=== PATIENT | female | born 1935 | race Caucasian/White ===

== ENCOUNTER 2017-08-10 04:08 | Inpatient (IN) | payer MEDICARE, MEDICAID ==
[2017-08-10 04:11] VITALS: BP 218/107; PULSE 98; RESP 18; TEMP 98.3; O2SAT 94
[2017-08-10] MEDS ORDERED: LEVO100T5 PO (04:27)
[2017-08-10] MEDS ORDERED: METF500T PO (04:27)
[2017-08-10] MEDS ORDERED: TOLT1CAP PO (04:27)
[2017-08-10] MEDS ORDERED: SIMV20TA PO (04:27)
[2017-08-10] MEDS ORDERED: GLIM4TAB PO (04:27)
[2017-08-10] MEDS ORDERED: SODIUM CHLOR 0.9% 1000 ML INJ 1,000 ML IV SCH (04:30)
[2017-08-10] MEDS ORDERED: MORPHINE SULFATE 4 MG/ML INJ IV PUSH ONE (04:30)
[2017-08-10] MEDS ORDERED: ONDANSETRON HCL 4 MG/2 ML VIAL IV PUSH ONE (04:30)
--- NOTE | 2017-08-10 04:35 | PD ---
HPI Chief Complaint: Fall Time Seen by Provider: 04:22 Travel History International Travel<30 days: No Contact w/Intl Traveler<30days: No Traveled to known affect area: No History of Present Illness HPI The patient is an 81 year old female who presents to the [facility] emergency department with a history of tripping and falling after getting up out of bed to go to the bathroom and the night prior to arrival. The patient reports that she ran into the vacuum and lost her balance falling to the ground. The patient reports having severe left hip pain. The patient was noted prior to arrival by ambulance services to have shortening and external rotation of the left lower extremity. She denies having any other pain. The patient denies having a headache or loss of consciousness. She denies having any neck pain, weakness of her extremities, however she does report having tingling and her left toes. She reports that she is able to move her left foot. Otherwise on review of systems, the patient denies having any chest pain , chest pressure, or shortness of breath. The patient denies having any abdominal pain, vomiting, diarrhea, urinary symptoms, or other neurologic symptoms. [facility] Past Medical History Narrative Medical The patient's past medical history is significant for hypertension, hypothyroid disorder, diabetes mellitus High Cholesterol: Yes Diabetes: Yes Patient Takes Glucophage: Yes (METFORMIN 08/09/17) Diminished Hearing: No Genitourinary: Yes (INCONTINENCE) Hypertension: Yes Thyroid Disease: Yes (HYPO) Tetanus Vaccination: Unknown Influenza Vaccination: No Past Surgical History Narrative Surgical The patient's past surgical history is significant for having a hysterectomy, having part of her small bowel resected last year. Abdominal Surgery: Yes (COLON RESECTION) Hysterectomy: Yes Social History Alcohol Use: No Tobacco Use: No Substance Use: No Allergies-Medications (Allergen,Severity, Reaction): Coded Allergies: No Known Allergies (Unverified , 08/10/17) Reported Meds & Prescriptions Reported Meds & Active Scripts Active Reported Simvastatin 20 Mg Tab 20 Mg PO DAILY Glimepiride 4 Mg Tab 4 Mg PO DAILY Take with breakfast or first main meal Levothyroxine (Levothyroxine Sodium) 100 Mcg Tab 100 Mcg PO DAILY Metformin (Metformin HCl) 500 Mg Tab 500 Mg PO DAILY With a meal Tolterodine ER (Tolterodine Tartrate) 4 Mg Cap 4 Mg PO DAILY Review of Systems Except as stated in HPI: all other systems reviewed are Neg General / Constitutional: No: Fever Eyes: No: Visual changes HENT: No: Headaches Cardiovascular: No: Chest Pain or Discomfort Respiratory: No: Shortness of Breath Gastrointestinal: No: Abdominal Pain Genitourinary: No: Dysuria Musculoskeletal: Positive: Myalgias, Arthralgias, Pain Skin: No Rash Neurologic: No: Weakness, Focal Abnormalities, Change in Mentation, Slurred Speech, Sensory Disturbance Psychiatric: No: Depression Endocrine: No: Polydipsia Hematologic/Lymphatic: No: Easy Bruising Physical Exam Narrative General: The patient is a well-developed well-nourished female in no acute distress. Head and Neck exam: Head is normocephalic atraumatic. Eyes: EOMI, pupils are equal round and reactive to light. Nose: Midline septum with pink mucous membranes Mouth: Dentition unremarkable. Moist mucus membranes. Posterior oropharynx is not erythematous. No tonsillar hypertrophy. Uvula midline. Airway patent. Neck: No palpable lymphadenopathy. No nuchal rigidity. No thyromegaly. Cardiovascular: Regular rate and rhythm without murmurs, gallops, or rubs. Lungs: Clear to auscultation bilaterally. No wheezes, rhonchi, or rales. Abdomen: Soft, without tenderness to palpation in all 4 quadrants of the abdomen. No guarding, rebound, or rigidity. Normal bowel sounds are audible. No tenderness on palpation of McBurney's point. Extremities: No clubbing, cyanosis, or edema. 2+ pulses in all 4 extremities. The patient is noted to have shortening and external rotation of the left lower extremity. The patient has pain with any attempts at movement of the left hip. The patient has no pain on palpation, ankle pain, or foot pain on palpation. There is no other deformity noted. The patient is able to wiggle her toes on the left foot. The patient has less than 3 second capillary refill. The patient reports having tingling sensations in the left toes. Back: No spinous process tenderness to palpation. No costovertebral angle tenderness to palpation. Neurologic Exam: Grossly nonfocal. The patient is oriented to person, place, time, and situation. Skin Exam: No rash noted. Intact skin that is warm and dry. Data Data Last Documented VS Vital Signs Date Time Temp Pulse Resp B/P (MAP) Pulse Ox O2 Delivery O2 Flow Rate FiO2 08/10/17 04:47 18 99 Room Air 08/10/17 04:11 98.3 98 218/107 (144) Orders Orders Electrocardiogram (08/10/17 04:22) Complete Blood Count With Diff (08/10/17 04:22) Comprehensive Metabolic Panel (08/10/17 04:22) Prothrombin Time / Inr (Pt) (08/10/17 04:22) Act Partial Throm Time (Ptt) (08/10/17 04:22) Urinalysis - C+S If Indicated (08/10/17 04:22) Chest, Single Ap (08/10/17 04:22) Iv Access Insert/Monitor (08/10/17 04:22) Ecg Monitoring (08/10/17 04:22) Oximetry (08/10/17 04:22) Urinary Catheter Insert/Apply (08/10/17 04:22) Morphine Inj (Morphine Inj) (08/10/17 04:30) Ondansetron Inj (Zofran Inj) (08/10/17 04:30) Sodium Chlor 0.9% 1000 Ml Inj (Ns 1000 M (08/10/17 04:30) Hip, Uni(Ap&Lat) W Ap Pelvis (08/10/17 04:51) Admit To Inpatient (08/10/17 ) Vital Signs (Adult) Q4H (08/10/17 05:39) Activity Bed Rest (08/10/17 05:39) Eeg Technologist / Telemetry .CONTINUOUS (08/10/17 05:39) Diet Npo (08/10/17 Breakfast) Sodium Chloride 0.9% Flush (Ns Flush) (08/10/17 05:45) Sodium Chloride 0.9% Flush (Ns Flush) (08/10/17 09:00) Basic Metabolic Panel (Bmp) (08/11/17 06:00) Complete Blood Count With Diff (08/11/17 06:00) Case Management Consult (08/10/17 05:39) Naloxone Inj (Narcan Inj) (08/10/17 05:45) Inpatient Certification (08/10/17 ) Morphine Inj (Morphine Inj) (08/10/17 05:45) Consult Orthopedic (08/10/17 ) Admit Order (Ed Use Only) (08/10/17 05:46) Labs Laboratory Tests Test 08/10/17 04:30 White Blood Count 9.3 TH/MM3 Red Blood Count 4.55 MIL/MM3 Hemoglobin 13.7 GM/DL Hematocrit 41.1 % Mean Corpuscular Volume 90.3 FL Mean Corpuscular Hemoglobin 30.0 PG Mean Corpuscular Hemoglobin Concent 33.2 % Red Cell Distribution Width 15.5 % Platelet Count 224 TH/MM3 Mean Platelet Volume 7.9 FL Neutrophils (%) (Auto) 68.4 % Lymphocytes (%) (Auto) 24.6 % Monocytes (%) (Auto) 4.6 % Eosinophils (%) (Auto) 1.8 % Basophils (%) (Auto) 0.6 % Neutrophils # (Auto) 6.4 TH/MM3 Lymphocytes # (Auto) 2.3 TH/MM3 Monocytes # (Auto) 0.4 TH/MM3 Eosinophils # (Auto) 0.2 TH/MM3 Basophils # (Auto) 0.1 TH/MM3 CBC Comment DIFF FINAL Differential Comment Prothrombin Time 10.5 SEC Prothromb Time International Ratio 1.0 RATIO Activated Partial Thromboplast Time 24.5 SEC Blood Urea Nitrogen 16 MG/DL Creatinine 0.99 MG/DL Random Glucose 192 MG/DL Total Protein 7.0 GM/DL Albumin 3.3 GM/DL Calcium Level 8.5 MG/DL Alkaline Phosphatase 67 U/L Aspartate Amino Transf (AST/SGOT) 16 U/L Alanine Aminotransferase (ALT/SGPT) 19 U/L Total Bilirubin 0.4 MG/DL Sodium Level 143 MEQ/L Potassium Level 3.9 MEQ/L Chloride Level 109 MEQ/L Carbon Dioxide Level 26.9 MEQ/L Anion Gap 7 MEQ/L Estimat Glomerular Filtration Rate 54 ML/MIN MDM Medical Decision Making Medical Screen Exam Complete: Yes Emergency Medical Condition: Yes Medical Record Reviewed: Yes Interpretation(s) Last Impressions Hip and Pelvis X-Ray 08/10/17 3903 Signed Impressions: Service Date/Time: Thursday, August 10, 2017 05:02 - CONCLUSION: 1. Intertrochanteric fracture left proximal femur. 2. Small sclerotic focus right iliac bone, nonspecific. Camron Villareal MD Chest X-Ray 08/10/17 9934 Signed Impressions: Service Date/Time: Thursday, August 10, 2017 05:06 - CONCLUSION: 1. 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 Contrasted CT chest recommended. 2. Subcentimeter nodule right lower lobe. 3. Minimal retrocardiac density. Camron Villareal MD Differential Diagnosis Left hip fracture, versus dislocation, versus femur fracture Narrative Course During the course of the patients emergency department visit, the patients history, examination, and differential diagnosis were reviewed with the patient. The patient was placed on a quality assurance monitor with oximetry and frequent blood pressure monitoring. The patient had IV access obtained and blood work sent for analysis. The patient was on a quality assurance monitor with oximetry and blood pressure monitoring. An ECG was done on arrival. The patient's ECG reveals a sinus rhythm heart rate of 99, no acute ST segment elevation, T waves are inverted in V1. An x-ray of the chest, left hip, pelvis was ordered. The patient was initially provided morphine for pain, Zofran for nausea. The patient was started on maintenance normal saline IV fluids. The patients laboratory studies were reviewed and remarkable for a CBC that is within normal limits, CMP is remarkable for chloride of 109, glucose 192, PT PTT within normal limits. Radiology studies were reviewed and remarkable for an intertrochanteric fracture on the left. The patient has a chest x-ray that shows a 7.3 cm left upper lobe mass that is likely a primary bronchogenic carcinoma, a contrasted CT of the chest is recommended. Subcentimeter nodule right lower lobe. Minimal retrocardiac density. The patients results were discussed with the patient, including the plan of care. I explained that further testing and/ or monitoring is indicated based on the patients history, examination, and/ or laboratory findings. Therefore, I recommended admission for additional evaluation. The patient expressed understanding and was agreeable with this plan. The patient was admitted to the hospital in stable condition and sent to a bed under the care of the [facility] service. Physician Communication Physician Communication The patient's case was discussed with Dr. Nathan who did agree to admit the patient for further evaluation and treatment at this time Diagnosis Primary Impression: Fall Qualified Codes: W19.XXXA - Unspecified fall, initial encounter Additional Impressions: Fracture, intertrochanteric, left femur Qualified Codes: S72.142A - Displaced intertrochanteric fracture of left femur , initial encounter for closed fracture Lung mass Admitting Information Admitting Physician Requests: Admit Ruby Snyder MD Aug 10, 2017 04:35
[2017-08-10 04:45] LABS: AUTOMATED NEUTROPHIL # 6.4 TH/MM3 (1.8-7.7); BASOPHIL # 0.1 TH/MM3 (0-0.2); BASOPHIL % 0.6 % (0.0-2.0); EOSINOPHIL # 0.2 TH/MM3 (0-0.4); EOSINOPHIL % 1.8 % (0.0-4.0); HEMATOCRIT 41.1 % (35.0-46.0); HEMO FLAGS DIFF FINAL; LYMPH % 24.6 % (9.0-44.0); LYMPHOCYTE # 2.3 TH/MM3 (1.0-4.8); MEAN CELL VOLUME 90.3 FL (80.0-100.0); MEAN CORPUSCULAR HGB CONC 33.2 % (32.0-36.0); MONO % 4.6 % (0.0-8.0); NEUT % 68.4 % (16.0-70.0); PLATELET COUNT 224 TH/MM3 (150-450); RED BLOOD COUNT 4.55 MIL/MM3 (4.00-5.30); RED CELL DISTRIBUTION WIDTH 15.5 % (11.6-17.2); WHITE BLOOD COUNT 9.3 TH/MM3 (4.0-11.0)
[2017-08-10 04:47] VITALS: RESP 18; O2SAT 99
[2017-08-10 05:00] LABS: APTT (PATIENT) 24.5 SEC (24.3-30.1); PROTHROMBIN TIME - PATIENT 10.5 SEC (9.8-11.6)
[2017-08-10 05:10] LABS: ALKALINE PHOSPHATASE 67 U/L (45-117); TOTAL BILIRUBIN ADULT 0.4 MG/DL (0.2-1.0)
[2017-08-10 05:11] LABS: ALT (GPT) 19 U/L (10-53); ANION GAP 7 MEQ/L (5-15); AST (GOT) 16 U/L (15-37); BICARBONATE 26.9 MEQ/L (21.0-32.0); BLOOD UREA NITROGEN 16 MG/DL (7-18); CHLORIDE 109 MEQ/L (98-107); GLOMERULAR FILTRATION RATE 54 ML/MIN (>89); POTASSIUM 3.9 MEQ/L (3.5-5.1); SODIUM (NA) 143 MEQ/L (136-145)
--- NOTE | 2017-08-10 05:28 | RADRPT ---
EXAM DATE/TIME: 08/10/2017 05:02 [facility] COMPARISON: No previous studies available for comparison. INDICATIONS : Fall hip pain on left side. MEDICAL HISTORY : None. SURGICAL HISTORY : None. ENCOUNTER: Initial ACUITY: 1 day PAIN SCORE: 0/10 LOCATION: Left hip FINDINGS: Examination of the left hip was performed with AP Pelvis. Slightly comminuted intertrochanteric fract ure left hip. Femoral neck is intact. Mild degenerative changes of the chest. Small sclerotic focus r ight iliac bone. The acetabulum is grossly intact. CONCLUSION: 1. Intertrochanteric fracture left proximal femur. 2. Small sclerotic focus right iliac bone, nonspecific. Camron Villareal MD on August 10, 2017 at 5:24 Board Certified Radiologist. This report was verified electronically.
[2017-08-10] MEDS ORDERED: SODIUM CHLORIDE 0.9% FLUSH 10 ML FLUSH IV FLUSH PRN (05:45)
[2017-08-10] MEDS ORDERED: NALOXONE HCL 0.4 MG/ML AMP IV PUSH PRN (05:45)
[2017-08-10] MEDS ORDERED: MORPHINE SULFATE 2 MG/ML INJ IV PUSH PRN (05:45)
[2017-08-10 06:00] VITALS: BP 177/82; PULSE 82; RESP 17; O2SAT 93
--- NOTE | 2017-08-10 06:16 | HHI.HP ---
[facility] No Primary Care Physician Admission Diagnosis left hip intertrochanteric fracture Diagnoses: Travel History International Travel<30 Days: No Contact w/Intl Traveler <30 Da: No Traveled to Known Affected Are: No History of Present Illness hx from patient, ER physician communication, and review of her records. Patient's granddaughter was at the bedside. 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 Patient reported that she was coming from bathroom to the bedroom and at the entrance, she lost balance. She tried to hold onto the vacuum housecleaner floor which was around her heart lost balance with it and fell together with the vacuum housecleaner floor onto her left side. She denies any premonitory symptoms prior to the fall such as chest pain/ palpitations/dizziness/focal weakness. She denies any diaphoresis/nausea/vomiting. Reports her last fall was about 6 months ago. Denies being on blood thinners. Denies hitting her head. Patient states that she has been taking some cough medicine lately because of her cough. No fever. However denies any history of COPD. She reports of some occasional wheezing but never needed nebulizers or inhalers. Examination apart from the above, patient denies any recent fevers/nausea/vomiting/diarrhea/urinary burning or pain on urination. Denies any hematemesis/hematochezia/melena/hematuria. Patient has been in [facility] for about 1-1/2 years now from [place]. She is here to help her granddaughter out with her toddler son Review of Systems Except as stated in HPI: all other systems reviewed are Neg Past Family Social History Past Medical History htn dm has chronic cough and wheezing at times, but no nebs or inhalors used hyperlipidemia Past Surgical History hysterectomy at 34 yo partial small bowel resection- for blockage- no cancer Reported Medications meds list on emr reviewed- pt's radha has list/ bottles of meds Allergies: Coded Allergies: No Known Allergies (Unverified , 08/10/17) Family History mom from cancer son is diabetic and diseased Social History Used to smoke cigarettes, quit about 1-1/2 years ago. Denies any alcohol abuse or drug abuse. Lives with granddaughter and her family to help them out. moved here from [place] about 1-1/2 years ago. Physical Exam Vital Signs Vital Signs Date Time Temp Pulse Resp B/P (MAP) Pulse Ox O2 Delivery O2 Flow Rate FiO2 08/10/17 06:00 82 17 177/82 (113) 93 Nasal Cannula 2.00 08/10/17 04:47 18 99 Room Air 08/10/17 04:11 98.3 98 18 218/107 (144) 94 Physical Exam GENERAL: This is a well-nourished, well-developed patient, in no apparent distress. SKIN: No rashes, ecchymoses or lesions. Cool and dry. HEAD: Atraumatic. Normocephalic. No temporal or scalp tenderness. EYES: No scleral icterus. No injection or drainage. ENT: Nose without bleeding, purulent drainage or septal hematoma. Airway patent. NECK: Trachea midline. No JVD CARDIOVASCULAR: Regular rate and rhythm without murmurs, gallops, or rubs. RESPIRATORY: Clear to auscultation. Breath sounds equal bilaterally. No wheezes , rales, or rhonchi. GASTROINTESTINAL: Abdomen soft, non-tender, nondistended. No guarding. MUSCULOSKELETAL: Extremities without clubbing, cyanosis, or edema. . No calf tenderness. Left lower extremity internally rotated and shorter than the right NEUROLOGICAL: Awake and alert. Normal speech Laboratory Laboratory Tests Test 08/10/17 04:30 White Blood Count 9.3 Red Blood Count 4.55 Hemoglobin 13.7 Hematocrit 41.1 Mean Corpuscular Volume 90.3 Mean Corpuscular Hemoglobin 30.0 Mean Corpuscular Hemoglobin Concent 33.2 Red Cell Distribution Width 15.5 Platelet Count 224 Mean Platelet Volume 7.9 Neutrophils (%) (Auto) 68.4 Lymphocytes (%) (Auto) 24.6 Monocytes (%) (Auto) 4.6 Eosinophils (%) (Auto) 1.8 Basophils (%) (Auto) 0.6 Neutrophils # (Auto) 6.4 Lymphocytes # (Auto) 2.3 Monocytes # (Auto) 0.4 Eosinophils # (Auto) 0.2 Basophils # (Auto) 0.1 CBC Comment DIFF FINAL Differential Comment Prothrombin Time 10.5 Prothromb Time International Ratio 1.0 Activated Partial Thromboplast Time 24.5 Blood Urea Nitrogen 16 Creatinine 0.99 Random Glucose 192 Total Protein 7.0 Albumin 3.3 Calcium Level 8.5 Alkaline Phosphatase 67 Aspartate Amino Transf (AST/SGOT) 16 Alanine Aminotransferase (ALT/SGPT) 19 Total Bilirubin 0.4 Sodium Level 143 Potassium Level 3.9 Chloride Level 109 Carbon Dioxide Level 26.9 Anion Gap 7 Estimat Glomerular Filtration Rate 54 Result Diagram: 08/10/1742908/10/17429 Imaging Last 48 hours Impressions Hip and Pelvis X-Ray 08/10/17450 Signed Impressions: Service Date/Time: Thursday, August 10, 2017 05:02 - CONCLUSION: 1. Intertrochanteric fracture left proximal femur. 2. Small sclerotic focus right iliac bone, nonspecific. MD Ajit Patiño VTE Risk Assessment Ajit VTE Risk Assessment: Mod/High Risk (score >= 2) Caprini Risk Assessment Model Point Value = 1 Point Value = 2 Point Value = 3 Point Value = 5 Age 41-60 Minor surgery BMI > 25 kg/m2 Swollen legs Varicose veins or History of unexplained or recurrent spontaneous Oral contraceptives or hormone replacement Sepsis (< 1 month) Serious lung disease, including pneumonia (< 1 month) Abnormal pulmonary function Acute myocardial infarction Congestive heart failure (< 1 month) History of inflammatory bowel disease Medical patient at bed rest Age 61-74 Arthroscopic surgery Major open surgery (> 45 min) Laparoscopic surgery (> 45 min) Malignancy Confined to bed (> 72 hours) Immobilizing plaster cast Central venous access Age >= 75 History of VTE Family history of VTE Factor V Leiden Prothrombin [id number] Lupus anticoagulant Anticardiolipin antibodies Elevated serum homocysteine Heparin-induced thrombocytopenia Other congenital or acquired thrombophilia Stroke (< 1 month) Elective arthroplasty Hip, pelvis, or leg fracture Acute spinal cord injury (< 1 month) Prophylaxis Regimen Total Risk Factor Score Risk Level Prophylaxis Regimen 0-1 Low Early ambulation 2 Moderate Order ONE of the following: *Sequential Compression Device (SCD) *Heparin 5000 units SQ BID 3-4 Higher Order ONE of the following medications: *Heparin 5000 units SQ TID *Enoxaparin/Lovenox 40 mg SQ daily (WT < 150 kg, CrCl > 30 mL/min) *Enoxaparin/Lovenox 30 mg SQ daily (WT < 150 kg, CrCl > 10-29 mL/min) *Enoxaparin/Lovenox 30 mg SQ BID (WT < 150 kg, CrCl > 30 mL/min) AND/OR *Sequential Compression Device (SCD) 5 or more Highest Order ONE of the following medications: *Heparin 5000 units SQ TID (Preferred with Epidurals) *Enoxaparin/Lovenox 40 mg SQ daily (WT < 150 kg, CrCl > 30 mL/min) *Enoxaparin/Lovenox 30 mg SQ daily (WT < 150 kg, CrCl > 10-29 mL/min) *Enoxaparin/Lovenox 30 mg SQ BID (WT < 150 kg, CrCl > 30 mL/min) AND *Sequential Compression Device (SCD) Assessment and Plan Assessment and Plan Impression: Status post fall Left intertrochanteric proximal femur fracture Hypertension Diabetes Hyperlipidemia Plan: Nothing by mouth. IV hydration with D5 half-normal saline at 42 cc per hour. Monitor fingersticks. Pain control. Resume home medications apart from oral hypoglycemics. Orthopedics was consulted. DVT prophylaxis with SCD. GI prophylaxis on pantoprazole. Discussed Condition With patient, her granddaughter, ER Physician Certification 2 Midnight Certification Type: Admission for Inpatient Services Order for Inpatient Services The services are ordered in accordance with Medicare regulations or non- Medicare payer requirements, as applicable. In the case of services not specified as inpatient-only, they are appropriately provided as inpatient services in accordance with the 2-midnight benchmark. Estimated LOS (days): 3 days is the estimated time the patient will need to remain in the hospital, assuming treatment plan goals are met and no additional complications. Post-Hospital Plan: Not yet determined Mario Nathan MD Aug 10, 2017 06:16
--- NOTE | 2017-08-10 06:31 | RADRPT ---
EXAM DATE/TIME: 08/10/2017 05:06 [facility] COMPARISON: No previous studies available for comparison. INDICATIONS : Fall, chest pain. MEDICAL HISTORY : None. SURGICAL HISTORY : None. ENCOUNTER: Initial ACUITY: 1 day PAIN SCORE: 0/10 LOCATION: Bilateral chest FINDINGS: A single view of the chest demonstrates mass in the left upper lobe/perihilar region measuring 7.3 x 5.9 cm. Nodule in the right lower lobe measures 7-8 mm. Heart enlarged. No consolidation. Minimal ret rocardiac density. Osseous structures are intact. CONCLUSION: 1. 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 Contrasted CT chest recommended. 2. Subcentimeter nodule right lower lobe. 3. Minimal retrocardiac density. Camron Villareal MD on August 10, 2017 at 6:28 Board Certified Radiologist. This report was verified electronically.
[2017-08-10] MEDS ORDERED: ACETAMINOPHEN/HYDROcodone 325 MG/5 MG TAB PO PRN (07:00)
[2017-08-10] MEDS ORDERED: GLUCAGON 1 MG/ML VIAL OTHER PRN (07:00)
[2017-08-10] MEDS ORDERED: LACTULOSE SYRUP 20 GM/30 ML CUP PO PRN (07:00)
[2017-08-10] MEDS ORDERED: ENALAPRILAT 1.25 MG/ML VIAL IV PUSH PRN (07:00)
[2017-08-10] MEDS ORDERED: DEXT 5%-NACL 0.45% 1000 ML INJ 1,000 ML IV SCH (07:00)
[2017-08-10] MEDS ORDERED: cloNIDine HCL 0.1 MG TAB PO PRN (07:00)
[2017-08-10] MEDS ORDERED: ACETAMINOPHEN 325 MG TAB PO PRN ×2 (07:00)
[2017-08-10] MEDS ORDERED: MAGNESIUM HYDROXIDE SUSP 30 ML CUP PO PRN (07:00)
[2017-08-10] MEDS ORDERED: MORPHINE SULFATE 4 MG/ML INJ IV PUSH PRN ×2 (07:00)
[2017-08-10] MEDS ORDERED: DEXTROSE 50% IN WATER 50 ML VIAL(D50) IV PUSH PRN (07:00)
[2017-08-10] MEDS ORDERED: BISACODYL 10 MG SUPP RECTAL PRN (07:00)
[2017-08-10] MEDS ORDERED: ACETAMINOPHEN 1000 MG/100 ML 100 ML IV ONE (07:04)
[2017-08-10] MEDS ORDERED: BUPIVACAINE/EPINEPHRINE 0.25% 50 ML VIAL ONE (07:20)
[2017-08-10] MEDS ORDERED: ceFAZolin INJ 1,000 MG VIAL ONE ×2 (07:20→07:54)
[2017-08-10] MEDS ORDERED: VANCOMYCIN HCL 1000 MG VIAL ONE (07:20)
[2017-08-10] MEDS ORDERED: GENTAMICIN SULFATE 80 MG/2 ML VIAL ONE (07:20)
--- NOTE | 2017-08-10 07:23 | PD.ORT.PN ---
Subjective Subjective Remarks Fall at home with pain to left leg. Unable to ambulate. Diagnosed with left proximal femur fracture Objective Vitals Vital Signs Date Time Temp Pulse Resp B/P (MAP) Pulse Ox O2 Delivery O2 Flow Rate FiO2 08/10/17 07:04 08/10/17 06:00 82 17 177/82 (113) 93 Nasal Cannula 2.00 08/10/17 04:47 18 99 Room Air 08/10/17 04:11 98.3 98 18 218/107 (144) 94 Result Diagram: 08/10/1742908/10/17429 Other Results Laboratory Tests Test 08/10/17 04:30 Prothromb Time International Ratio 1.0 RATIO Prothrombin Time 10.5 SEC (9.8-11.6) Imaging Last 24 hours Impressions Hip and Pelvis X-Ray 08/10/17450 Signed Impressions: Service Date/Time: Thursday, August 10, 2017 05:02 - CONCLUSION: 1. Intertrochanteric fracture left proximal femur. 2. Small sclerotic focus right iliac bone, nonspecific. Camron Villareal MD Chest X-Ray 08/10/17421 Signed Impressions: Service Date/Time: Thursday, August 10, 2017 05:06 - CONCLUSION: 1. 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 Contrasted CT chest recommended. 2. Subcentimeter nodule right lower lobe. 3. Minimal retrocardiac density. Camron Villareal MD Objective Remarks Bilateral upper extremities: Full range of motion neurovascular intact Right lower extremity: Full range of motion neurovascularly intact Left lower extremity: Pain to palpation of hip. No pain at knee or ankle. Distally intact sensation good capillary refills. Assessment & Plan Assessment and Plan Left subtrochanteric femur fracture Nothing by mouth Surgery this morning for IM nail fixation Sign consents Marty Luke Jr. Aug 10, 2017 07:23
[2017-08-10] MEDS: INSULIN ASPART SUPPLEMENTAL SCALE SQ SCH ×4 (08:00→20:32)
[2017-08-10] MEDS ORDERED: XARE10TA PO (08:03)
[2017-08-10] MEDS ORDERED: WALKER/ADULT/FO1 MIS (08:03)
[2017-08-10] MEDS ORDERED: HYDR-3580 PO (08:03)
[2017-08-10] MEDS ORDERED: CALCTAB19 PO (08:03)
[2017-08-10] MEDS ORDERED: VITA2000 PO (08:03)
[2017-08-10] MEDS ORDERED: ERGO1CAP30 PO (08:03)
[2017-08-10] MEDS ORDERED: LACTATED RINGER'S 1000 ML IV PRN (08:15)
[2017-08-10] MEDS ORDERED: SODIUM CHLORID 0.9% 500 ML IV PRN (08:15)
[2017-08-10] MEDS ORDERED: INSULIN HUMAN REGULAR 1,000 UNITS/10 ML VIAL SQ PRN (08:15)
[2017-08-10] MEDS ORDERED: CHLORHEXIDINE GLUCONATE 2 % 1 PACK (2 CLOTHS) TOPICAL PRN (08:15)
[2017-08-10] MEDS ORDERED: POVIDONE IODINE 5% (ANTISEPSIS KIT) 4 APPLICATIONS EACH NARE PRN (08:15)
[2017-08-10] MEDS ORDERED: METOPROLOL TARTRATE 25 MG TAB PO PRN (08:15)
--- NOTE | 2017-08-10 08:28 | PD.OP ---
cc: Ayan Hinkle MD Operative Report Date of Surgery: Aug 10, 2017 Preoperative Diagnosis: Displaced left hip intertrochanteric fracture Postoperative Diagnosis: Procedure: Left hip reduction and intramedullary nail fixation Surgeon: Ayan Hinkle Celebrity Manager(s): JASON Beckwith PA-C The surgical procedure was assisted by my physician phlebotomist lab assistant. My P.A. presence was necessary throughout this case for the manipulation and positioning of the surgical extremity. My P.A. was assisting me throughout the duration of this procedure. The skill set of a physician phlebotomist lab assistant was medically necessary to complete this procedure. During the surgical case the surgical first assistant was working at the back table and the physician phlebotomist lab assistant was directly assisting me. Operation and Findings: Implants used: Synthes TFNA long troch nail Plan of activity: 50% weightbearing 3 weeks, then weight-bear as tolerated Patient was seen and evaluated preoperatively. The patient has significant hip pain from left proximal femur fracture. The risk and benefits of surgery were discussed in depth with the patient to include bleeding, infection, nonunion, malunion, need for hip replacement, painful hardware, as well as medical competitions including blood clots, stroke, heart attack, and . Informed consent was obtained. Operative site was marked. Patient was brought to the operating room and placed on fracture table. IV sedation was administered by anesthesiologist. Timeout procedure was performed. Hip and leg were prepped with alcohol followed by DuraPrep and draped in the usual sterile fashion. IV antibiotics were given prior to incision. Procedure began with reduction of fracture. Traction was applied. The leg was manipulated to achieve reduction. Excellent reduction was achieved. Fluoroscopy was used to confirm reduction. A three inch incision was made proximal to the trochanter. Subcutaneous tissue was dissected bluntly. Guidepin was placed at the tip of the trochanter and advanced into the femoral canal. Fluoroscopy confirmed appropriate guidepin placement. A opening reamer was placed over the guidepin. A long ball tipped guide pin was now placed down the femoral canal into the center of the distal femur. The nail length was now measured. Fluoroscopy confirmed appropriate guidepin placement. Flexible reamers were now passed over the guidepin to ream the intramedullary canal. The Synthes TFNA nail was attached to the insertion handle. Nail was now placed over the guidepin into the femoral canal. Fluoroscopy confirmed appropriate nail placement. A second incision was made over the lateral thigh. Cannulas were placed through the insertion handle down to the femur. Guidepin was now placed through the femoral nail into the center of the femoral head. Fluoroscopy confirmed appropriate guidepin placement. Screw length was measured. Cannulated drill was placed over the guidepin. Appropriate length lag screw was now placed. Traction was released and compression was applied. The set screw was now tightened in dynamic mode. Next, using perfect [place] technique two distal interlocking screws were placed. Screw holes were predrilled and screw lengths were measured. Final fluoroscopy revealed well aligned fracture with well-placed hardware. Incision was closed with 3-0 Vicryl and yessi. Sterile dressings were applied. Patient was awakened and transferred to recovery room. Ayan Hinkle MD Aug 10, 2017 08:27
[2017-08-10] MEDS ORDERED: SODIUM CHLORIDE 0.9% FLUSH 5 ML FLUSH IVF PRN (08:30)
[2017-08-10] MEDS ORDERED: diphenhydrAMINE HCL 25 MG CAP PO PRN (08:30)
[2017-08-10] MEDS: SODIUM CHLORIDE 0.9% FLUSH 5 ML FLUSH IVF SCH ×2 (09:00→20:33)
[2017-08-10] MEDS: TOLTERODINE TARTRATE 4 MG CAP LA PO SCH (09:00)
[2017-08-10] MEDS: PRAVASTATIN SOD 40 MG TAB PO SCH (09:00)
[2017-08-10] MEDS ORDERED: SODIUM CHLORIDE 0.9% FLUSH 10 ML FLUSH IV FLUSH SCH (09:00)
[2017-08-10] MEDS: PANTOPRAZOLE SOD 40 MG DELAYED RELEASE TAB PO SCH (09:00)
[2017-08-10] MEDS: DOCUSATE SODIUM 50 MG/SENNA 8.6 MG TAB PO SCH ×2 (09:00→20:32)
[2017-08-10] MEDS ORDERED: ERGOCALCIFEROL (VIT D2) 50,000 UNIT CAP PO ONE (09:30)
[2017-08-10] MEDS ORDERED: NALOXONE HCL 0.4 MG/ML AMP ONE (09:32)
--- NOTE | 2017-08-10 09:42 | MB ---
cc: AYAN SHUKLA DATE OF ADMISSION 08/10/2017 DATE OF CONSULTATION 08/10/2017 REASON FOR CONSULTATION Left hip intertrochanteric fracture. HISTORY Lillie is an 81-year-old female who presented to the emergency room via EMS. She was at home when she lost her balance. She frequently feels weakness in her legs and normally has to hold onto something to keep from falling. She tried to hold onto a vacuum window cleaner which tripped over. She fell and landed on her left side. She had immediate left hip pain. She was unable to stand or ambulate. She presented to the emergency room where x-rays reveal a left hip intertrochanteric fracture. Currently her granddaughter is at bedside. The patient speaks mostly Scottish and her granddaughter speaks fluent Polish and Scottish and is acting as hook up driver. Her only complaint currently is her left hip. Pain is worse with movement. PAST MEDICAL HISTORY ILLNESSES 1. Hypertension. 2. Diabetes. 3. High cholesterol. SURGERIES 1. Hysterectomy. 2. Small bowel resection. MEDICATIONS Please see EMR for complete list of inpatient medications. This was reviewed. ALLERGIES No known drug allergies. FAMILY HISTORY Positive for cancer in her mother and diabetes in a son. SOCIAL HISTORY The patient quit smoking 1-1/2 years ago. She denies alcohol use. She lives with her granddaughter. She moved here from [place] proximally 1-1/2 years ago. REVIEW OF SYSTEMS The patient denies headache, visual changes, neck pain, chest pain, shortness of breath, abdominal pain, nausea, vomiting, recent weight loss or numbness or tingling of extremities. She does have a chronic cough. She complains of left hip pain. PHYSICAL EXAMINATION GENERAL: The patient is a well-developed, well-nourished 81-year-old female in no acute distress. She is awake and alert. She is alert and oriented x3. She appears well-developed, well-nourished. VITAL SIGNS: Temperature 98.3, pulse 98, respirations 18, blood pressure 177/82, O2 sat is 98% on 2 liters nasal cannula. HEAD: The patient is normocephalic. Pupils are equal. NECK: Soft, nontender. Trachea is midline. ABDOMEN: Soft, nontender, nondistended. EXTREMITIES: Examination of the bilateral upper extremities reveals no pain with shoulder, elbow or wrist motion. She has intact sensation in all fingers. She has good capillary refill in all fingers. Skin is intact to both hands. Radial pulses are palpable bilaterally. Examination of the right leg reveals no pain with hip, knee or ankle motion. Skin is intact. Dorsalis pedis pulse is palpable. Sensation is intact. Examination of left leg reveals pain with any hip motion. She has no tenderness around her knee, tibia or ankle. Skin is intact. Dorsalis pedis pulse is palpable. Sensation intact to the left foot. Skin is intact at the left hip. X-RAYS X-ray of left hip were reviewed. X-rays reveal a displaced left hip intertrochanteric fracture. IMPRESSION 1. Diabetes. 2. Hypertension. 3. Left hip intertrochanteric fracture. 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 PLAN The treatment options were discussed with the patient. At this point I would recommend surgery for a left hip fracture. I would recommend reduction and intramedullary nail fixation of the left femur. The risks of surgery include bleeding, infection, injury to arteries, nerves or blood vessels, nonunion, malunion, avascular necrosis, need for hip replacement, painful hardware as well as medical complications including blood clot, stroke, heart attack and . All questions were answered. I will plan on surgery today. A mid-level provider in my office, nurse practitioner or PA, may see this patient on a follow-up basis and continue to implement the objective of this plan including: Starting or adjusting medications, injections of muscle, tendon, bursa or joints, cast application, orthotic or brace application, physical therapy, further radiographic studies including x-ray, MRI, CT, ultrasounds or bone scan, vascular studies, neurologic studies, or other specialist consultations, and proceeding with surgical management as appropriate. Ayan MD KELLY Rivera/ALMA /7:18 AM /9:24 AM
[2017-08-10] MEDS ORDERED: DO NOT ADM ANY ANTICOAGULANT DRUGS PRN (10:15)
--- NOTE | 2017-08-10 10:25 | HHI.PR ---
Subjective Remarks Follow-up orthopedic injury. Seen in the PACU case discussed with RN and orthopedic surgery. 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 She denies pain, weight loss and history of cancer. Made aware of chest x-ray results pending CT. Also discussed with adriana Duckworth Objective Vitals Vital Signs Date Time Temp Pulse Resp B/P (MAP) Pulse Ox O2 Delivery O2 Flow Rate FiO2 08/10/17 07:38 Nasal Cannula 2 08/10/17 07:04 08/10/17 06:00 82 17 177/82 (113) 93 Nasal Cannula 2.00 08/10/17 04:47 18 99 Room Air 08/10/17 04:11 98.3 98 18 218/107 (144) 94 I/O 08/09/17 08/09/17 08/09/17 08/10/17 08/10/17 08/10/17 07:00 15:00 23:00 07:00 15:00 23:00 Intake Total 1700 ml Output Total 350 ml Balance 1350 ml Intake IV Total 1700 ml Output Urine Total 300 ml Estimated Blood Loss 50 ml Result Diagram: 08/10/17 0430 08/10/17 0430 Imaging Last Impressions Hip and Pelvis X-Ray 08/10/17 0451 Signed Impressions: Service Date/Time: Thursday, August 10, 2017 05:02 - CONCLUSION: 1. Intertrochanteric fracture left proximal femur. 2. Small sclerotic focus right iliac bone, nonspecific. Camron Villareal MD Chest X-Ray 08/10/17 0422 Signed Impressions: Service Date/Time: Thursday, August 10, 2017 05:06 - CONCLUSION: 1. 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 Contrasted CT chest recommended. 2. Subcentimeter nodule right lower lobe. 3. Minimal retrocardiac density. Camron Villareal MD Objective Remarks GENERAL: Well-developed, well-nourished in no distress on face mask SKIN: Warm and dry. HEAD: Atraumatic. Normocephalic. EYES: Pupils equal and round. No scleral icterus. No injection or drainage. ENT: No nasal bleeding or discharge. Mucous membranes pink and moist. NECK: Trachea midline. No JVD. CARDIOVASCULAR: Regular rate and rhythm. RESPIRATORY: No accessory muscle use. Clear to auscultation. Breath sounds equal bilaterally. GASTROINTESTINAL: Abdomen soft, non-tender, nondistended. MUSCULOSKELETAL: Extremities without clubbing, cyanosis, or edema. Tender left hip NEUROLOGICAL: Awake and alert. No obvious cranial nerve deficits. Motor grossly within normal limits. Five out of 5 muscle strength in the arms and legs. Normal speech. Procedures Left hip reduction and intramedullary nail fixation A/P Problem List: (1) Fracture, intertrochanteric, left femur ICD Code: S72.142A - Displaced intertrochanteric fracture of left femur, initial encounter for closed fracture Status: Acute (2) Fall ICD Code: W19.XXXA - Unspecified fall, initial encounter Status: Acute (3) Lung mass ICD Code: R91.8 - Other nonspecific abnormal finding of lung field Status: Acute Assessment and Plan Status post fall Left intertrochanteric proximal femur fracture -Status post repair. Stable continue postoperative care with PT, wound care, pain management with Lortab and IV morphine and DVT prophylaxis with Lovenox Hypertension. Uncontrolled secondary to pain. Continue Detrol with as needed when necessary Vasotec and clonidine Diabetes. Monitor fingersticks with sliding scale coverage. Hold metformin and glipizide for now pending po tolerance Hyperlipidemia. Continue statins Lung mass. Obtain chest CT and likely will need oncology consultation Discharge Planning Per orthopedic surgery Problem Qualifiers (1) Fracture, intertrochanteric, left femur: Qualified Codes: S72.142A - Displaced intertrochanteric fracture of left femur , initial encounter for closed fracture (2) Fall: Qualified Codes: W19.XXXA - Unspecified fall, initial encounter Pedro Luis Pelayo MD Aug 10, 2017 10:25
[2017-08-10] MEDS ORDERED: IOHEXOL 350 MG/ML 10 ML VIAL (for RAD DIAG) IVCONTRAST ONE (10:59)
--- NOTE | 2017-08-10 12:51 | RADRPT ---
EXAM DATE/TIME: 08/10/2017 10:58 [facility] COMPARISON: CHEST SINGLE AP, August 10, 2017, 5:06. INDICATIONS : Left chest pain. Abnormal chest x-ray. IV CONTRAST: 60 cc Omnipaque 350 (iohexol) IV RADIATION DOSE: 7.05 CTDIvol (mGy) MEDICAL HISTORY : Hypertension. Diabetes mellitus type 2. SURGICAL HISTORY : Hysterectomy. ENCOUNTER: Initial ACUITY: 1 day PAIN SCALE: 6/10 LOCATION: Left chest TECHNIQUE: Volumetric scanning of the chest was performed. Using automated exposure control and adjustment of t he mA and/or kV according to patient size, radiation dose was kept as low as reasonably achievable to obtain optimal diagnostic quality images. DICOM format image data is available electronically for review and comparison. Follow-up recommendations for detected pulmonary nodules are based at a minimum on nodule size and pa tient risk factors according to Fleischner Society Guidelines. FINDINGS: LUNGS: 8.9 x 6.2 cm left parahilar mass lesion is localized to the superior segment of the left lower lobe. Branch vessels of the lower lobe pulmonary artery traversed directly through the mass. There is a con solidation in the left base may represent either tumoral extension/daughter lesions or postobstructiv e collapse as the lower lobe bronchial tree also traverses the mass lesion. Scattered granulomatous c alcifications in both lungs. PLEURA: There is no pleural thickening or pleural effusion. Bibasilar atelectatic changes MEDIASTINUM: The heart and great vessels demonstrate no acute abnormality. Borderline prevascular lymph nodes. Ho wever, despite the bulky left parahilar mass lesion, there is no identifiable mediastinal adenopathy. The mass extends to the left hilar lymph nodes, however. AXILLAE: Within normal limits. No lymphadenopathy. SKELETAL: Old healed fracture deformities involving the anterolateral left fourth and fifth ribs. Otherwise int act. MISCELLANEOUS: The visualized upper abdominal organs demonstrate no acute abnormality. CONCLUSION: 1. Bulky 8.9 x 6.2 cm left parahilar mass lesion localized to the superior segment left lower lobe. D irect extension to the left hilar lymph nodes with no obvious mediastinal adenopathy. 2. There is a consolidation in the left base may represent daughter lesions or postobstructive collap se. Bulky lower lobe and artery and bronchial tree traverse through the mass lesion. 3. Old granulomatous calcifications bilaterally. Mingo Rodriguez MD on August 10, 2017 at 12:42 Board Certified Radiologist. This report was verified electronically.
[2017-08-10] MEDS: CALCIUM/VITAMIN D 250 MG/125 U TAB PO SCH (13:00)
--- NOTE | 2017-08-10 15:01 | EKG ---
Date Performed: 08/10/2017 Time Performed: 04:14:11 PTAGE: 81 years EKG: Sinus rhythm POSSIBLE RIGHT VENTRICULAR CONDUCTION DELAY NONSPECIFIC T-WAVE ABNORMALITY BORDERLINE ECG NO PREVIOUS TRACING DOCTOR: Zeeshan Cornejo Interpretating Date/Time 08/10/2017 14:56:16
[2017-08-10 16:00] VITALS: BP 144/79; PULSE 96; RESP 18; TEMP 97.3; O2SAT 94
[2017-08-10] MEDS: ACETAMINOPHEN/HYDROcodone 325 MG/7.5 MG TAB PO PRN (17:46)
--- NOTE | 2017-08-10 19:07 | RADRPT ---
EXAM DATE/TIME: 08/10/2017 09:07 [facility] COMPARISON: No previous studies available for comparison. INDICATIONS : IM troch nail left femur. MEDICAL HISTORY : Hypertension. Diabetes mellitus type 2.Intertrochanteric fracture SURGICAL HISTORY : Hysterectomy. ENCOUNTER: Subsequent ACUITY: 2 days PAIN SCORE: Non-responsive. LOCATION: Left Femur. FINDINGS: Intramedullary betty is present traversing the femur with fixation screws proximally and distally. Ther e is gross anatomical alignment of the fracture fragments. CONCLUSION: Intact postsurgical changes. Edward Willingham MD on August 10, 2017 at 19:06 Board Certified Radiologist. This report was verified electronically.
[2017-08-10 20:00] VITALS: BP 147/71; PULSE 97; RESP 18; TEMP 96.8; O2SAT 97
[2017-08-10 21:21] VITALS: PULSE 100
[2017-08-11] VITALS (7 sets, daily range): BP systolic 118–138; BP diastolic 60–68; PULSE 80–109; RESP 16–20; TEMP 96.2–99.3; O2SAT 90–97
--- NOTE | 2017-08-11 01:28 | PD.ONC.PN ---
Subjective Subjective Remarks Full consult note dictated patient seen on 08/10/17 CT scan reviewed CONCLUSION: 1. Bulky 8.9 x 6.2 cm left parahilar mass lesion localized to the superior segment left lower lobe. Direct extension to the left hilar lymph nodes with no obvious mediastinal adenopathy. 2. There is a consolidation in the left base may represent daughter lesions or postobstructive collapse. Bulky lower lobe and artery and bronchial tree traverse through the mass lesion. 3. Old granulomatous calcifications bilaterally. Suspicious for malignancy Will need CT of the abdomen and pelvis IR for CT guided biopsy Objective Data Date Time Temp Pulse Resp B/P (MAP) Pulse Ox O2 Delivery O2 Flow Rate FiO2 08/11/17 00:00 98.8 87 16 118/67 (84) 90 08/10/17 21:21 100 08/10/17 20:00 96.8 97 18 147/71 (96) 97 08/10/17 16:00 97.3 96 18 144/79 (100) 94 08/10/17 13:50 75 14 161/68 (99) 98 Nasal Cannula 2 08/10/17 13:00 69 14 155/70 (98) 98 Nasal Cannula 2 08/10/17 12:00 78 14 143/69 (93) 97 Nasal Cannula 2 08/10/17 11:00 90 14 152/69 (96) 95 Nasal Cannula 2 08/10/17 10:45 72 14 156/72 (100) 94 Nasal Cannula 4 08/10/17 10:30 67 14 135/63 (87) 96 Nasal Cannula 4 08/10/17 10:15 78 14 143/66 (91) 98 Simple Mask 8 08/10/17 10:00 79 14 159/70 (99) 94 Simple Mask 8 08/10/17 09:48 97.7 88 14 138/63 (88) 95 Nasal Cannula 4 08/10/17 07:38 Nasal Cannula 2 08/10/17 07:04 08/10/17 06:00 82 17 177/82 (113) 93 Nasal Cannula 2.00 08/10/17 04:47 18 99 Room Air 08/10/17 04:11 98.3 98 18 218/107 (144) 94 Result Diagram: 08/10/17 04308/10/17 043 Laboratory Results Laboratory Tests Test 08/10/17 04:30 08/10/17 10:00 White Blood Count 9.3 TH/MM3 Red Blood Count 4.55 MIL/MM3 Hemoglobin 13.7 GM/DL Hematocrit 41.1 % Mean Corpuscular Volume 90.3 FL Mean Corpuscular Hemoglobin 30.0 PG Mean Corpuscular Hemoglobin Concent 33.2 % Red Cell Distribution Width 15.5 % Platelet Count 224 TH/MM3 Mean Platelet Volume 7.9 FL Neutrophils (%) (Auto) 68.4 % Lymphocytes (%) (Auto) 24.6 % Monocytes (%) (Auto) 4.6 % Eosinophils (%) (Auto) 1.8 % Basophils (%) (Auto) 0.6 % Neutrophils # (Auto) 6.4 TH/MM3 Lymphocytes # (Auto) 2.3 TH/MM3 Monocytes # (Auto) 0.4 TH/MM3 Eosinophils # (Auto) 0.2 TH/MM3 Basophils # (Auto) 0.1 TH/MM3 CBC Comment DIFF FINAL Differential Comment Prothrombin Time 10.5 SEC Prothromb Time International Ratio 1.0 RATIO Activated Partial Thromboplast Time 24.5 SEC Blood Urea Nitrogen 16 MG/DL Creatinine 0.99 MG/DL Random Glucose 192 MG/DL Total Protein 7.0 GM/DL Albumin 3.3 GM/DL Calcium Level 8.5 MG/DL Alkaline Phosphatase 67 U/L Aspartate Amino Transf (AST/SGOT) 16 U/L Alanine Aminotransferase (ALT/SGPT) 19 U/L Total Bilirubin 0.4 MG/DL Sodium Level 143 MEQ/L Potassium Level 3.9 MEQ/L Chloride Level 109 MEQ/L Carbon Dioxide Level 26.9 MEQ/L Anion Gap 7 MEQ/L Estimat Glomerular Filtration Rate 54 ML/MIN 25-Hydroxy Vitamin D Total 6.9 ng/ML Imaging Studies Last [address] 08/10/17 0708 Signed Impressions: Service Date/Time: Thursday, August 10, 2017 10:58 - CONCLUSION: 1. Bulky 8.9 x 6.2 cm left parahilar mass lesion localized to the superior segment left lower lobe. Direct extension to the left hilar lymph nodes with no obvious mediastinal adenopathy. 2. There is a consolidation in the left base may represent daughter lesions or postobstructive collapse. Bulky lower lobe and artery and bronchial tree traverse through the mass lesion. 3. Old granulomatous calcifications bilaterally. Mingo Rodriguez MD Hip and Pelvis X-Ray 08/10/17 0451 Signed Impressions: Service Date/Time: Thursday, August 10, 2017 05:02 - CONCLUSION: 1. Intertrochanteric fracture left proximal femur. 2. Small sclerotic focus right iliac bone, nonspecific. Camron Villareal MD Chest X-Ray 08/10/17 0422 Signed Impressions: Service Date/Time: Thursday, August 10, 2017 05:06 - CONCLUSION: 1. 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 Contrasted CT chest recommended. 2. Subcentimeter nodule right lower lobe. 3. Minimal retrocardiac density. Camron Villareal MD Administered Medications Medications (Trade) Dose Ordered Sig/Cristian Route PRN Reason Start Time Stop Time Status Last Admin Dose Admin Acetaminophen/ Hydrocodone Bitart ([place] 5-325 Mg) 1 tab Q4H PRN PO PAIN SCALE 3 TO 5 08/10/17 07:00 08/11/17 00:00 Acetaminophen/ Hydrocodone Bitart ([place] 7.5-325 Mg) 1 tab Q4H PRN PO PAIN SCALE 6 TO 10 08/10/17 07:00 08/10/17 17:46 Senna/Docusate Sodium (Rose-Colace) 1 tab BID PO 08/10/17 09:00 08/10/17 20:32 Insulin Aspart (NovoLOG SUPPLEMENTAL SCALE) 1 ACHS SLIDING SCALE SQ 08/10/17 08:00 08/10/17 20:32 Dextrose/Sodium Chloride 1,000 ml @ 42 mls/hr [id number] IV 08/10/17 07:00 08/10/17 10:30 Lactated Ringer's 1,000 ml @ 30 mls/hr Q24H PRN IV SEE LABEL COMMENTS 08/10/17 08:15 08/13/17 08:14 08/10/17 07:50 Cefazolin Sodium 1000 mg/Sodium Chloride 100 ml @ 200 mls/hr Q8H IV 08/10/17 16:00 08/11/17 08:29 08/10/17 23:59 Diphenhydramine HCl (Benadryl) 25 mg Q6H PRN PO ITCHING 08/10/17 08:30 08/10/17 20:32 Objective Remarks GENERAL: nad SKIN: Warm and dry. HEAD: Normocephalic. EYES: No scleral icterus. No injection or drainage. NECK: Supple, trachea midline. No JVD or lymphadenopathy. LYMPHATIC: No adenopathy. CARDIOVASCULAR: Regular rate and rhythm without murmurs. RESPIRATORY: Breath sounds equal bilaterally. No accessory muscle use. GASTROINTESTINAL: Abdomen soft, non-tender, nondistended. EXTREMITIES: No cyanosis, or edema. MUSCULOSKELETAL: Adequate muscle tone. NEUROLOGICAL: No obvious focal deficit. Awake, alert, and oriented x3. PSYCHIATRIC: Appropriate mood and affect; insight and judgment normal. Assessment/Plan Problem List: (1) Lung mass ICD Codes: R91.8 - Other nonspecific abnormal finding of lung field Status: Acute (2) Fall ICD Codes: W19.XXXA - Unspecified fall, initial encounter Status: Acute (3) Fracture, intertrochanteric, left femur ICD Codes: S72.142A - Displaced intertrochanteric fracture of left femur, initial encounter for closed fracture Status: Acute Problem Qualifiers (1) Fall: Qualified Codes: W19.XXXA - Unspecified fall, initial encounter (2) Fracture, intertrochanteric, left femur: Qualified Codes: S72.142A - Displaced intertrochanteric fracture of left femur , initial encounter for closed fracture Fritz Mendoza MD Aug 11, 2017 01:27
[2017-08-11] MEDS: LEVOTHYROXINE SODIUM 100 MCG TAB PO SCH (06:00)
[2017-08-11] MEDS: ACETAMINOPHEN/HYDROcodone 325 MG/7.5 MG TAB PO PRN ×3 (06:45→17:57)
--- NOTE | 2017-08-11 06:45 | PD.ORT.PN ---
Subjective Subjective Remarks Pain controlled with no new complaints Objective Vitals Vital Signs Date Time Temp Pulse Resp B/P (MAP) Pulse Ox O2 Delivery O2 Flow Rate FiO2 08/11/17 04:00 96.2 80 17 129/60 (83) 96 08/11/17 00:00 98.8 87 16 118/67 (84) 90 08/10/17 21:21 100 08/10/17 20:00 96.8 97 18 147/71 (96) 97 08/10/17 16:00 97.3 96 18 144/79 (100) 94 08/10/17 13:50 75 14 161/68 (99) 98 Nasal Cannula 2 08/10/17 13:00 69 14 155/70 (98) 98 Nasal Cannula 2 08/10/17 12:00 78 14 143/69 (93) 97 Nasal Cannula 2 08/10/17 11:00 90 14 152/69 (96) 95 Nasal Cannula 2 08/10/17 10:45 72 14 156/72 (100) 94 Nasal Cannula 4 08/10/17 10:30 67 14 135/63 (87) 96 Nasal Cannula 4 08/10/17 10:15 78 14 143/66 (91) 98 Simple Mask 8 08/10/17 10:00 79 14 159/70 (99) 94 Simple Mask 8 08/10/17 09:48 97.7 88 14 138/63 (88) 95 Nasal Cannula 4 08/10/17 07:38 Nasal Cannula 2 08/10/17 07:04 I/O 08/10/17 08/10/17 08/10/17 08/11/17 08/11/17 08/11/17 07:00 15:00 23:00 07:00 15:00 23:00 Intake Total 1700 ml 480 ml 480 ml Output Total 950 ml 600 ml 600 ml Balance 750 ml -120 ml -120 ml Intake Oral 480 ml 480 ml IV Total 1700 ml Output Urine Total 900 ml 600 ml 600 ml Estimated Blood Loss 50 ml # Bowel Movements 0 0 Result Diagram: 08/10/1742908/10/17 043 Imaging Last 24 hours Impressions Hip and Pelvis X-Ray 08/10/17 0451 Signed Impressions: Service Date/Time: Thursday, August 10, 2017 05:02 - CONCLUSION: 1. Intertrochanteric fracture left proximal femur. 2. Small sclerotic focus right iliac bone, nonspecific. Camron Villareal MD Chest X-Ray 08/10/17 0422 Signed Impressions: Service Date/Time: Thursday, August 10, 2017 05:06 - CONCLUSION: 1. 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 Contrasted CT chest recommended. 2. Subcentimeter nodule right lower lobe. 3. Minimal retrocardiac density. Camron Villareal MD Objective Remarks Bilateral upper extremities: Full range of motion neurovascular intact Right lower extremity: Full range of motion neurovascularly intact Left lower extremity: Clean dry dressings intact. Mild swelling. No pain with ankle range of motion. Distally intact sensation with good capillary refill Assessment & Plan Assessment and Plan Left subtrochanteric femur fracture - IM nail POD 1 Daily dressing changes begin POD 2 50% weightbearing left lower extremity Lovenox Incentive spirometry Discontinue [facility] Case management for rehabilitation placement Follow-up with Dr. Hinkle or PA in 2 weeks Marty Luke Jr. Aug 11, 2017 06:45
[2017-08-11 07:21] LABS: AUTOMATED NEUTROPHIL # 8.2 TH/MM3 (1.8-7.7); BASOPHIL % 0.3 % (0.0-2.0); EOSINOPHIL # 0.1 TH/MM3 (0-0.4); HEMATOCRIT 26.8 % (35.0-46.0); HEMO FLAGS DIFF FINAL; LYMPH % 12.3 % (9.0-44.0); LYMPHOCYTE # 1.3 TH/MM3 (1.0-4.8); MEAN CELL VOLUME 89.4 FL (80.0-100.0); MEAN CORPUSCULAR HEMOGLOBIN 30.8 PG (27.0-34.0); MEAN CORPUSCULAR HGB CONC 34.4 % (32.0-36.0); MONO % 7.4 % (0.0-8.0); PLATELET COUNT 158 TH/MM3 (150-450); RED CELL DISTRIBUTION WIDTH 15.6 % (11.6-17.2); WHITE BLOOD COUNT 10.4 TH/MM3 (4.0-11.0)
[2017-08-11 08:00] LABS: POTASSIUM 3.5 MEQ/L (3.5-5.1)
[2017-08-11] MEDS: CALCIUM/VITAMIN D 250 MG/125 U TAB PO SCH ×3 (09:00→17:57)
[2017-08-11] MEDS: CHOLECALCIFEROL (VIT D3) 5000 UNIT CAP PO SCH (09:00)
[2017-08-11] MEDS: PRAVASTATIN SOD 40 MG TAB PO SCH (09:00)
[2017-08-11] MEDS: DOCUSATE SODIUM 50 MG/SENNA 8.6 MG TAB PO SCH ×2 (09:00→21:09)
[2017-08-11] MEDS: ENOXAPARIN SODIUM 30 MG/0.3 ML SYRINGE SQ SCH (09:00)
[2017-08-11] MEDS: TOLTERODINE TARTRATE 4 MG CAP LA PO SCH (09:00)
[2017-08-11] MEDS: PANTOPRAZOLE SOD 40 MG DELAYED RELEASE TAB PO SCH (09:00)
[2017-08-11] MEDS: INSULIN ASPART SUPPLEMENTAL SCALE SQ SCH ×4 (09:40→21:14)
[2017-08-11] MEDS: SODIUM CHLORIDE 0.9% FLUSH 5 ML FLUSH IVF SCH ×2 (09:40→21:09)
[2017-08-11] MEDS ORDERED: INFLUENZA VIRUS VACCINE (QUADRIVALENT) 0.5 ML SYR IM ONE (10:00)
[2017-08-11] MEDS ORDERED: PNEUMOCOCCAL POLYVALENT INJ 25 MCG/0.5 ML SYR IM ONE (10:00)
[2017-08-11] MEDS ORDERED: IOHEXOL 350 MG/ML 10 ML VIAL (for RAD DIAG) IVCONTRAST ONE (10:38)
--- NOTE | 2017-08-11 12:18 | HHI.PR ---
Subjective Remarks Follow-up femur fracture. Complaining of surgical pain control with medications. Awaiting lung biopsy. Discussed with RN Objective Vitals Vital Signs Date Time Temp Pulse Resp B/P (MAP) Pulse Ox O2 Delivery O2 Flow Rate FiO2 08/11/17 08:00 98.2 88 18 138/63 (88) 96 08/11/17 07:45 16 08/11/17 04:00 96.2 80 17 129/60 (83) 96 08/11/17 00:00 98.8 87 16 118/67 (84) 90 08/10/17 21:21 100 08/10/17 20:00 96.8 97 18 147/71 (96) 97 08/10/17 16:00 97.3 96 18 144/79 (100) 94 08/10/17 13:50 75 14 161/68 (99) 98 Nasal Cannula 2 08/10/17 13:00 69 14 155/70 (98) 98 Nasal Cannula 2 I/O 08/10/17 08/10/17 08/10/17 08/11/17 08/11/17 08/11/17 07:00 15:00 23:00 07:00 15:00 23:00 Intake Total 1700 ml 480 ml 480 ml Output Total 950 ml 600 ml 600 ml Balance 750 ml -120 ml -120 ml Intake Oral 480 ml 480 ml IV Total 1700 ml Output Urine Total 900 ml 600 ml 600 ml Estimated Blood Loss 50 ml # Bowel Movements 0 0 Result Diagram: 08/11/1713 08/11/17612 Objective Remarks GENERAL: Well-developed, well-nourished in no distress on nasal cannula SKIN: Warm and dry. CARDIOVASCULAR: Regular rate and rhythm. RESPIRATORY: No accessory muscle use. Clear to auscultation. Breath sounds equal bilaterally. GASTROINTESTINAL: Abdomen soft, non-tender, nondistended. MUSCULOSKELETAL: Extremities without clubbing, cyanosis, or edema. Tender left hip NEUROLOGICAL: Awake and alert. No obvious cranial nerve deficits. Motor grossly within normal limits. Five out of 5 muscle strength in the arms and legs. Normal speech. Procedures Left hip reduction and intramedullary nail fixation A/P Problem List: (1) Fracture, intertrochanteric, left femur ICD Code: S72.142A - Displaced intertrochanteric fracture of left femur, initial encounter for closed fracture Status: Acute (2) Fall ICD Code: W19.XXXA - Unspecified fall, initial encounter Status: Acute (3) Lung mass ICD Code: R91.8 - Other nonspecific abnormal finding of lung field Status: Acute Assessment and Plan Status post fall Left intertrochanteric proximal femur fracture -Status post repair. Stable continue postoperative care with PT, wound care, pain management with Lortab and IV morphine and DVT prophylaxis with Lovenox Acute anemia secondary to acute blood loss from surgery. Hemodynamically stable will monitor Hypertension. Uncontrolled secondary to pain. Continue Detrol with as needed when necessary Vasotec and clonidine. Improved Diabetes. Monitor fingersticks with sliding scale coverage. Hold metformin secondary to contrast study. Restart glipizide Hyperlipidemia. Continue statins Lung mass. For lung biopsy. Follow-up abdominal CT. Oncology consulted Discharge Planning Per orthopedic surgery and oncology Problem Qualifiers (1) Fracture, intertrochanteric, left femur: Qualified Codes: S72.142A - Displaced intertrochanteric fracture of left femur , initial encounter for closed fracture (2) Fall: Qualified Codes: W19.XXXA - Unspecified fall, initial encounter Pedro Luis Pelayo MD Aug 11, 2017 12:18
--- NOTE | 2017-08-11 13:44 | RADRPT ---
EXAM DATE/TIME: 08/11/2017 10:36 [facility] COMPARISON: CT THORAX W CONTRAST, August 10, 2017, 10:58. INDICATIONS : Lung mass, staging IV CONTRAST: 95 cc Omnipaque 350 (iohexol) IV ORAL CONTRAST: No oral contrast ingested. RADIATION DOSE: 16.79 CTDIvol (mGy) MEDICAL HISTORY : Hypertension. Hypothyroidism. SURGICAL HISTORY : Hysterectomy. ENCOUNTER: Initial ACUITY: 2 days PAIN SCALE: 0/10 LOCATION: abdomen TECHNIQUE: Volumetric scanning of the abdomen and pelvis was performed. Using automated exposure control and adjustment of the mA and/or kV according to patient size, radiation dose was kept as low as reasonably achievable to obtain optimal diagnostic quality images. DICOM format image data is av ailable electronically for review and comparison. FINDINGS: LOWER LUNGS: Redemonstration of left lower lobe mass/postobstructive consolidation. LIVER: There is an 8mm hypodense mass near the dome of the liver which is too small to characteri ze. Liver is otherwise unremarkable. Joint hepatic ductal dilatation. Gallbladder is distended but ot herwise unremarkable by CT. SPLEEN: Normal size without lesion. PANCREAS: There is a 1.3 x 1.6 cm cystic mass in the body of the pancreas. Pancreas otherwise abi ears unremarkable without evidence for ductal dilatation or tail atrophy. KIDNEYS: 8mm densely calcified nonobstructing calcified calyceal calculus in the few pole of the left kidney. 7 mm hypodense lesion in the superior pole the left kidney which is too small to fully c haracterize. Small 2-5 mm calyceal calculi in the posterior mid right kidney. No hydronephrosis or si gnificant mass. ADRENAL GLANDS: Within normal limits. VASCULAR: There is no aortic aneurysm. BOWEL/MESENTERY: The stomach, small bowel, and colon demonstrate no acute abnormality. There is no free intraperitoneal air or fluid. ABDOMINAL WALL: Within normal limits. RETROPERITONEUM: There is no lymphadenopathy. BLADDER: Tiny focus of air in the bladder likely from recent catheterization. Bladder is otherwis e unremarkable. REPRODUCTIVE: Status post hysterectomy. INGUINAL: There is no lymphadenopathy or hernia. MUSCULOSKELETAL: Left femoral intertrochanteric fracture with intramedullary betty and compression screw fixation. There is a 1.9 x 1.7 cm right posterior paraspinal mass at the inferior T12 level. No definite focal lytic or blastic bony lesions. CONCLUSION: 1. 1.3 x 1.6 cm simple appearing cystic mass in the body of the pancreas without pancreatic ductal di latation or tail atrophy. Although there are no obvious malignant characteristics, differential consi derations include both benign and malignant etiologies. However, this does not have characteristic ap pearance for metastatic disease. 2. 1.9 x 1.7 cm soft tissue density mass adjacent to the righ posterior paraspinal muscles at T12 lev el. Although nonspecific, metastatic disease cannot be excluded. This may be further evaluated with P ET/CT scan. 3. Subcentimeter hypodense lesion in the dome of the liver is too small to characterize. Aleksandr Casanova MD on August 11, 2017 at 13:27 Board Certified Radiologist. This report was verified electronically.
[2017-08-11] MEDS ORDERED: MIDAZOLAM HCL 2 MG/2 ML VIAL ONE (15:42)
--- NOTE | 2017-08-11 16:15 | PD.RAD ---
Post CT Procedure Prog Note Pre Procedure Diagnosis: (1) Lung mass Post Procedure Diagnosis: (1) Lung mass Procedure Date: Aug 11, 2017 Supervising Radiologist: Aleksandr Casanova Anesthesia: Conscious Sedation Plan of Activity Patient to Unit: Nursing Unit Patient Condition: Good See PACS Report for procedural detail/treatment Aleksandr Casanova MD Aug 11, 2017 16:15
--- NOTE | 2017-08-11 16:39 | RADRPT ---
EXAM DATE/TIME: 08/11/2017 17:12 [facility] COMPARISON: No previous studies available for comparison. INDICATIONS : Post left lung biopsy MEDICAL HISTORY : Hypertension. Hypothyroidism. SURGICAL HISTORY : None. ENCOUNTER: Initial ACUITY: 1 day PAIN SCORE: Non-responsive. LOCATION: Left chest FINDINGS: No significant pneumothorax. Redemonstration of large left lower lobe lung mass with partial left low er lobe collapse. Cardiomedi subchondral stable. Remainder of exam is unchanged. CONCLUSION: 1. No significant pneumothorax status post left lower lobe lung mass biopsy. Aleksandr Casanova MD on August 11, 2017 at 16:37 Board Certified Radiologist. This report was verified electronically.
[2017-08-11] MEDS ORDERED: LIDOCAINE 1%/EPINEPHrine 1:100,000 SOLN 20 ML VIAL OTHER ONE (17:04)
[2017-08-11] MEDS: GLIMEPIRIDE 4 MG TAB PO SCH (18:03)
--- NOTE | 2017-08-11 19:04 | RADRPT ---
EXAM DATE/TIME: 08/11/2017 19:17 [facility] COMPARISON: CHEST SINGLE AP, August 10, 2017, 5:06. CT NEEDLE BIOPSY LUNG, LEFT, August 11, 2017, 15:52. INDICATIONS : Post lung biopsy. Evaluate for pneumothorax. MEDICAL HISTORY : Hypertension. Hypothyroidism. SURGICAL HISTORY : Hysterectomy. ENCOUNTER: Subsequent ACUITY: 1 day PAIN SCORE: 0/10 LOCATION: Bilateral chest FINDINGS: Large left lung mass is noted. Granuloma in the contralateral right base. No evidence of pneumothorax or hemothorax. Cardiac contours are grossly stable. CONCLUSION: No evidence of pneumothorax Robb Shukla MD on August 11, 2017 at 19:01 Board Certified Radiologist. This report was verified electronically.
--- NOTE | 2017-08-11 22:26 | PD.ONC.PN ---
Subjective Subjective Remarks biopsy today CT abdomen and pelvis reviewed will need outpatient PET scan further recs based on biopsy post op anemia Hb 9.2 obtain anemia studies Objective Data Date Time Temp Pulse Resp B/P (MAP) Pulse Ox O2 Delivery O2 Flow Rate FiO2 08/11/17 21:43 99.3 101 20 129/60 (83) 94 08/11/17 18:57 16 08/11/17 17:15 95 20 123/64 (83) 96 08/11/17 16:30 97.7 109 20 123/67 (85) 97 08/11/17 12:00 96.7 91 18 125/68 (87) 95 08/11/17 08:00 98.2 88 18 138/63 (88) 96 08/11/17 04:00 96.2 80 17 129/60 (83) 96 08/11/17 00:00 98.8 87 16 118/67 (84) 90 08/11/17 08/11/17 08/11/17 07:00 15:00 23:00 Intake Total 480 ml 100 ml Output Total 600 ml Balance -120 ml 100 ml Result Diagram: 08/11/1713 08/11/17612 Laboratory Results Laboratory Tests Test 08/11/17 06:13 White Blood Count 10.4 TH/MM3 Red Blood Count 3.00 MIL/MM3 Hemoglobin 9.2 GM/DL Hematocrit 26.8 % Mean Corpuscular Volume 89.4 FL Mean Corpuscular Hemoglobin 30.8 PG Mean Corpuscular Hemoglobin Concent 34.4 % Red Cell Distribution Width 15.6 % Platelet Count 158 TH/MM3 Mean Platelet Volume 8.2 FL Neutrophils (%) (Auto) 79.0 % Lymphocytes (%) (Auto) 12.3 % Monocytes (%) (Auto) 7.4 % Eosinophils (%) (Auto) 1.0 % Basophils (%) (Auto) 0.3 % Neutrophils # (Auto) 8.2 TH/MM3 Lymphocytes # (Auto) 1.3 TH/MM3 Monocytes # (Auto) 0.8 TH/MM3 Eosinophils # (Auto) 0.1 TH/MM3 Basophils # (Auto) 0.0 TH/MM3 CBC Comment DIFF FINAL Differential Comment Blood Urea Nitrogen 14 MG/DL Creatinine 0.94 MG/DL Random Glucose 155 MG/DL Calcium Level 7.5 MG/DL Sodium Level 141 MEQ/L Potassium Level 3.5 MEQ/L Chloride Level 106 MEQ/L Carbon Dioxide Level 27.0 MEQ/L Anion Gap 8 MEQ/L Estimat Glomerular Filtration Rate 57 ML/MIN Imaging Studies Last 24 hours Impressions Chest X-Ray 08/11/170 Signed Impressions: Service Date/Time: Friday, August 11, 2017 19:17 - CONCLUSION: No evidence of pneumothorax Robb Shukla MD Chest X-Ray 08/11/170 Signed Impressions: Service Date/Time: Friday, August 11, 2017 17:12 - CONCLUSION: 1. No significant pneumothorax status post left lower lobe lung mass biopsy. Aleksandr Casanova MD Abdomen/Pelvis CT 08/11/17 0000 Signed Impressions: Service Date/Time: Friday, August 11, 2017 10:36 - CONCLUSION: 1. 1.3 x 1.6 cm simple appearing cystic mass in the body of the pancreas without pancreatic ductal dilatation or tail atrophy. Although there are no obvious malignant characteristics, differential considerations include both benign and malignant etiologies. However, this does not have characteristic appearance for metastatic disease. 2. 1.9 x 1.7 cm soft tissue density mass adjacent to the righ posterior paraspinal muscles at T12 level. Although nonspecific, metastatic disease cannot be excluded. This may be further evaluated with PET/CT scan. 3. Subcentimeter hypodense lesion in the dome of the liver is too small to characterize. Aleksandr Casanova MD Administered Medications Medications (Trade) Dose Ordered Sig/Cristian Route PRN Reason Start Time Stop Time Status Last Admin Dose Admin Acetaminophen/ Hydrocodone Bitart ([place] 5-325 Mg) 1 tab Q4H PRN PO PAIN SCALE 3 TO 5 08/10/17 07:00 08/11/17 00:00 Acetaminophen/ Hydrocodone Bitart ([place] 7.5-325 Mg) 1 tab Q4H PRN PO PAIN SCALE 6 TO 10 08/10/17 07:00 08/11/17 17:57 Senna/Docusate Sodium (Rose-Colace) 1 tab BID PO 08/10/17 09:00 08/11/17 21:09 Insulin Aspart (NovoLOG SUPPLEMENTAL SCALE) 1 ACHS SLIDING SCALE SQ 08/10/17 08:00 08/10/17 20:32 Lactated Ringer's 1,000 ml @ 30 mls/hr Q24H PRN IV SEE LABEL COMMENTS 08/10/17 08:15 08/13/17 08:14 08/10/17 07:50 IV Flush (NS Flush) 2 ml BID IVF 08/10/17 09:00 08/11/17 09:40 Calcium/Vitamin D (Oscal-D 250-125) 250 mg TID PO 08/10/17 13:00 08/11/17 17:57 Diphenhydramine HCl (Benadryl) 25 mg Q6H PRN PO ITCHING 08/10/17 08:30 08/10/17 20:32 Glimepiride (Amaryl) 4 mg DAILY PO 08/11/17 17:00 08/11/17 18:03 Objective Remarks GENERAL: nad, weak SKIN: Warm and dry. NECK: Supple, trachea midline. No JVD or lymphadenopathy. LYMPHATIC: No adenopathy. CARDIOVASCULAR: Regular rate and rhythm without murmurs. RESPIRATORY: Breath sounds equal bilaterally. No accessory muscle use. GASTROINTESTINAL: Abdomen soft, non-tender, nondistended. EXTREMITIES: No cyanosis, or edema. Assessment/Plan Problem List: (1) Lung mass ICD Codes: R91.8 - Other nonspecific abnormal finding of lung field Status: Acute (2) Fall ICD Codes: W19.XXXA - Unspecified fall, initial encounter Status: Acute (3) Fracture, intertrochanteric, left femur ICD Codes: S72.142A - Displaced intertrochanteric fracture of left femur, initial encounter for closed fracture Status: Acute Plan as above awaiting biopsy results anemia studies Problem Qualifiers (1) Fall: Qualified Codes: W19.XXXA - Unspecified fall, initial encounter (2) Fracture, intertrochanteric, left femur: Qualified Codes: S72.142A - Displaced intertrochanteric fracture of left femur , initial encounter for closed fracture Fritz Mendoza MD Aug 11, 2017 22:26
[2017-08-12] VITALS (7 sets, daily range): BP systolic 102–151; BP diastolic 59–90; PULSE 87–101; RESP 16–20; TEMP 97.3–98.2; O2SAT 92–99
[2017-08-12] MEDS: ACETAMINOPHEN/HYDROcodone 325 MG/7.5 MG TAB PO PRN ×4 (00:17→18:49)
[2017-08-12] MEDS: LEVOTHYROXINE SODIUM 100 MCG TAB PO SCH (06:22)
--- NOTE | 2017-08-12 06:42 | PD.ORT.PN ---
Subjective Subjective Remarks POD 2 s/p IMN left hip doing well. granddaughter at bedside translating. reports no pain overnight. has been working with therapy Objective Vitals Vital Signs Date Time Temp Pulse Resp B/P (MAP) Pulse Ox O2 Delivery O2 Flow Rate FiO2 08/12/17 04:14 98.2 100 18 127/60 (82) 96 08/12/17 00:00 98.0 100 20 151/90 (110) 96 08/11/17 21:43 99.3 101 20 129/60 (83) 94 08/11/17 18:57 16 08/11/17 17:15 95 20 123/64 (83) 96 08/11/17 16:30 97.7 109 20 123/67 (85) 97 08/11/17 12:00 96.7 91 18 125/68 (87) 95 08/11/17 08:00 98.2 88 18 138/63 (88) 96 I/O 08/11/17 08/11/17 08/11/17 08/12/17 08/12/17 08/12/17 07:00 15:00 23:00 07:00 15:00 23:00 Intake Total 480 ml 100 ml Output Total 600 ml Balance -120 ml 100 ml Intake Oral 480 ml IV Total 100 ml Output Urine Total 600 ml # Bowel Movements 0 Result Diagram: 08/11/1761208/11/17612 Imaging Last 24 hours Impressions Hip and Pelvis X-Ray 08/10/17 0450 Signed Impressions: Service Date/Time: Thursday, August 10, 2017 05:02 - CONCLUSION: 1. Intertrochanteric fracture left proximal femur. 2. Small sclerotic focus right iliac bone, nonspecific. Camron Villareal MD Chest X-Ray 08/10/17 3953 Signed Impressions: Service Date/Time: Thursday, August 10, 2017 05:06 - CONCLUSION: 1. 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 Contrasted CT chest recommended. 2. Subcentimeter nodule right lower lobe. 3. Minimal retrocardiac density. Camron Villareal MD Objective Remarks Bilateral upper extremities: Full range of motion neurovascular intact Right lower extremity: Full range of motion neurovascularly intact Left lower extremity: Clean dry dressings intact. Mild swelling. No pain with ankle range of motion. Distally intact sensation with good capillary refill Assessment & Plan Assessment and Plan 1) Left subtrochanteric femur fracture - IM nail POD 2 Daily dressing changes begin POD 2 50% weightbearing left lower extremity Lovenox Incentive spirometry Case management for rehabilitation placement ortho cleared for DC to rehab Follow-up with Dr. Hinkle or PA in 2 weeks James Sargent Aug 12, 2017 06:42
--- NOTE | 2017-08-12 06:48 | MB ---
cc: NADER LANG DATE OF 1935 DATE OF CONSULTATION August 10, 2017. REASON FOR CONSULTATION Patient with a pulmonary mass. HISTORY OF PRESENT ILLNESS This is an 81-year-old female who has a past medical history of hypertension, diabetes and hyperlipidemia who has not had consistent primary care followup. She moved to [place] from [place] approximately one year ago. She lives with her daughter. She was working in the home where she lost her balance and fell [place]. She was brought to the emergency room. She had left-sided hip pain in the emergency department. X-ray was obtained which showed an intertrochanteric fracture of the left proximal femur. There was also a small sclerotic focus in the right iliac bone. The patient subsequently was seen by Orthopedic Surgery and she underwent intramedullary nailing. She is doing well post-surgery. She complains of pain in her left hip. She has mild dyspnea. However, she denies any chest pain. A CT of the chest was obtained on admission which unfortunately shows an 8.9 x 6.2 cm left hilar mass localized to the superior segment in the left lower lobe. There is extension to the left hilar lymph nodes. There is a consolidation in the left base. There is bulky lower lobe arterial and bronchial tree mass which was also visualized. She has more than 30 pack-years of smoking history. She quit smoking approximately 1 year ago. She denies having any night sweats, fevers, no weight loss. No loss of appetite. She denies any other symptoms. REVIEW OF SYSTEMS A comprehensive 14-point review of systems was completed which is negative except as described in the HPI. PAST MEDICAL HISTORY 1. Hypertension. 2. Diabetes. 3. Chronic cough. 4. Hyperlipidemia. PAST SURGICAL HISTORY 1. Hysterectomy at age 34. 2. Partial small-bowel resection. MEDICATIONS 1. Amaryl 4 mg p.o. daily. 2. Lovenox 30 mg subcu 24 hours. 3. Vitamin D3 5000 units daily. 4. Senna docusate 1 tablet p.o. b.i.d. 5. Pravastatin 40 mg p.o. daily. 6. Pantoprazole 40 mg daily. 7. Metoprolol 25 mg p.o. p.r.n. 8. Insulin sliding scale. 9. Levothyroxine 100 mcg daily. 10. Zofran 4 mg p.r.n. 11. [place] 5/225 p.o. q.4 hours p.r.n. 12. Morphine sulfate 1 mg injection q.3 hours p.r.n. 13. Senna. 14. Bisocodyl. 15. Lactulose. 16. Clonidine 0.1 mg p.o. q.6 hours p.r.n. ALLERGIES No known drug allergies. FAMILY HISTORY Her mother had some sort of cancer. Son is diabetic. SOCIAL HISTORY She has more than 30-40 pack-years of smoking history. She quit 1 year ago. No illicit drug use. No alcohol abuse. She lives with her granddaughter. PHYSICAL EXAMINATION VITAL SIGNS: Blood pressure is 144/77, pulse is 96, temperature is 97.3, respiratory rate is 12, O2 sats are 94% on room air. GENERAL: Elderly female in no apparent distress. HEENT: Pupils are equal, round, reactive to light. EOMI. No oral thrush. No oral lesions. NECK: Supple. No JVD, no bruits, no lymphadenopathy. CHEST: Clear to auscultation bilaterally. CARDIAC: S1-S2, regular rate and rhythm. ABDOMEN: Soft, nontender, nondistended. Bowel sounds are present. EXTREMITIES: She has left hip dressing in place. She is postop day #1. She has undergone intramedullary nail placement. LYMPHATICS: No lymphadenopathy on exam. SKIN: Without any obvious petechiae, bruising or lesions. LABORATORY DATA WBC 9.3, hemoglobin 13.7, platelet count 224. Serum chemistries show sodium of 143, potassium 3.9, chloride 109 p.o. 226.9, BUN 16, creatinine 0.99, GFR is 54, glucose 192, calcium 8.5, total bilirubin 0.4, AST 16, ALT 19, alk phos 57, total protein 7, albumin is 0.3. Coags show PT of 10.5, INR 1, PTT 24.5. IMAGING STUDIES CT of the chest was reviewed. Hip and pelvic x-rays and chest x-rays were reviewed and discussed in the HPI above. ASSESSMENT AND PLAN This is an 81-year-old female with a past medical history of tobacco abuse of more than 40 pack-years, chronic cough, hypertension, hyperlipidemia, hypothyroidism, diabetes who was brought to the emergency department after she suffered a fall and had a left intertrochanteric hip fracture. She has undergone surgery. During the course of her admission a CT scan of the chest was obtained which shows the large and bulky masses. Oncology has been consulted for further recommendations. 1. I have reviewed her chest CT. These findings are quite concerning for primary bronchogenic carcinoma. There is a large bulky mass at 8.9 x 6.2 cm in the left perihilar region. Additionally there is left hilar adenopathy. There is also consolidation in the left base which is concerning for carcinoma. We need to obtain a biopsy of these lesions. I would recommend consulting IR for a CT-guided biopsy of this mass. We will also need to obtain a CT of the abdomen and pelvis to assess for any distant disease. Further recommendations will be based on the results of the biopsy. If this is confirmed bronchogenic carcinoma, we will need to obtain biomolecular testing. I will make my further recommendations after we have the results of the biopsy available. 2. Intertrochanteric fracture status post intramedullary nailing postop day #1. 3. Postop anemia with a hemoglobin of 9.2. Obtain iron studies. Check B12 and folate. Thank you for allowing me to participate in the care of this patient. I will continue to follow this patient along. MD ROZINA Casanova/ALMA /12:01 AM /6:23 AM
[2017-08-12] MEDS: INSULIN ASPART SUPPLEMENTAL SCALE SQ SCH ×4 (08:00→19:58)
[2017-08-12 08:34] LABS: AUTOMATED NEUTROPHIL # 6.9 TH/MM3 (1.8-7.7); BASOPHIL % 0.5 % (0.0-2.0); EOSINOPHIL # 0.3 TH/MM3 (0-0.4); EOSINOPHIL % 3.1 % (0.0-4.0); HEMATOCRIT 26.2 % (35.0-46.0); HEMO FLAGS DIFF FINAL; LYMPH % 14.7 % (9.0-44.0); LYMPHOCYTE # 1.4 TH/MM3 (1.0-4.8); MEAN CELL VOLUME 90.4 FL (80.0-100.0); MEAN CORPUSCULAR HEMOGLOBIN 30.8 PG (27.0-34.0); MONO % 7.9 % (0.0-8.0); NEUT % 73.8 % (16.0-70.0); PLATELET COUNT 160 TH/MM3 (150-450); RED CELL DISTRIBUTION WIDTH 15.8 % (11.6-17.2); WHITE BLOOD COUNT 9.3 TH/MM3 (4.0-11.0)
[2017-08-12 09:24] LABS: BICARBONATE 28.4 MEQ/L (21.0-32.0); MAGNESIUM 1.9 MG/DL (1.5-2.5); POTASSIUM 3.7 MEQ/L (3.5-5.1)
[2017-08-12] MEDS: ENOXAPARIN SODIUM 30 MG/0.3 ML SYRINGE SQ SCH (09:27)
[2017-08-12] MEDS: CHOLECALCIFEROL (VIT D3) 5000 UNIT CAP PO SCH (09:28)
[2017-08-12] MEDS: CALCIUM/VITAMIN D 250 MG/125 U TAB PO SCH ×3 (09:28→18:49)
[2017-08-12] MEDS: TOLTERODINE TARTRATE 4 MG CAP LA PO SCH (09:28)
[2017-08-12] MEDS: PANTOPRAZOLE SOD 40 MG DELAYED RELEASE TAB PO SCH (09:28)
[2017-08-12] MEDS: SODIUM CHLORIDE 0.9% FLUSH 5 ML FLUSH IVF SCH ×2 (09:28→19:58)
[2017-08-12] MEDS: DOCUSATE SODIUM 50 MG/SENNA 8.6 MG TAB PO SCH ×2 (09:28→19:58)
[2017-08-12] MEDS: PRAVASTATIN SOD 40 MG TAB PO SCH (09:28)
[2017-08-12] MEDS: SENNOSIDES 8.6 MG TAB PO PRN ×2 (09:28→19:58)
[2017-08-12] MEDS: GLIMEPIRIDE 4 MG TAB PO SCH (09:28)
[2017-08-12 09:49] LABS: FERRITIN 61 NG/ML (8-252); TRANSFERRIN IRON PROFILE 171 MG/DL (200-360)
--- NOTE | 2017-08-12 10:26 | HHI.DCPOC ---
Discharge Care Plan Diagnosis: (1) Fracture, intertrochanteric, left femur (2) Fall Your Health Problems Are: Difficulty with ADL Goals to Promote Your Health * To prevent worsening of your condition and complications * To maintain your health at the optimal level Directions to Meet Your Goals Take your medications as prescribed Follow your dietary instruction Follow activity as directed Keep your appointments as scheduled Take your immunizations and boosters as scheduled If your symptoms worsen call your PCP, if no PCP go to Urgent Care Center or Emergency Room Smoking is Dangerous to Your Health. Avoid second hand smoke Call the 24-hour hour crisis hotline for domestic abuse at Kristina Michael Aug 12, 2017 10:26 am
[2017-08-12] MEDS ORDERED: INFLUENZA VIRUS VACCINE (QUADRIVALENT) 0.5 ML SYR IM ONE (14:00)
[2017-08-12] MEDS ORDERED: PNEUMOCOCCAL POLYVALENT INJ 25 MCG/0.5 ML SYR IM ONE (14:00)
--- NOTE | 2017-08-12 14:22 | HHI.PR ---
Subjective Remarks Follow-up orthopedic injury and lung mass. Improving hip pain. Tolerated lung biopsy still on oxygen weaned down to 4 L. Denies shortness of breath and chest pain. Discussed with RN, patient cleared for discharge by orthopedic surgery awaiting insurance authorization discussed with oncology [employer], patient' s cleared for discharge with oncology follow-up to discuss results of biopsy Objective Vitals Vital Signs Date Time Temp Pulse Resp B/P (MAP) Pulse Ox O2 Delivery O2 Flow Rate FiO2 08/12/17 08:00 97.3 94 16 138/66 (90) 92 08/12/17 04:14 98.2 100 18 127/60 (82) 96 08/12/17 00:00 98.0 100 20 151/90 (110) 96 08/11/17 21:43 99.3 101 20 129/60 (83) 94 08/11/17 18:57 16 08/11/17 17:15 95 20 123/64 (83) 96 08/11/17 16:30 97.7 109 20 123/67 (85) 97 I/O 08/11/17 08/11/17 08/11/17 08/12/17 08/12/17 08/12/17 07:00 15:00 23:00 07:00 15:00 23:00 Intake Total 480 ml 100 ml 120 ml Output Total 600 ml Balance -120 ml 100 ml 120 ml Intake Oral 480 ml 120 ml IV Total 100 ml Output Urine Total 600 ml # Voids 3 # Bowel Movements 0 0 Result Diagram: 08/12/17 0642 08/12/17 0642 Imaging Last Impressions Chest X-Ray 08/11/17 1830 Signed Impressions: Service Date/Time: Friday, August 11, 2017 19:17 - CONCLUSION: No evidence of pneumothorax Robb Shukla MD Abdomen/Pelvis CT 08/11/17 0000 Signed Impressions: Service Date/Time: Friday, August 11, 2017 10:36 - CONCLUSION: 1. 1.3 x 1.6 cm simple appearing cystic mass in the body of the pancreas without pancreatic ductal dilatation or tail atrophy. Although there are no obvious malignant characteristics, differential considerations include both benign and malignant etiologies. However, this does not have characteristic appearance for metastatic disease. 2. 1.9 x 1.7 cm soft tissue density mass adjacent to the righ posterior paraspinal muscles at T12 level. Although nonspecific, metastatic disease cannot be excluded. This may be further evaluated with PET/CT scan. 3. Subcentimeter hypodense lesion in the dome of the liver is too small to characterize. Aleksandr Casanova MD Chest CT 08/10/17 0708 Signed Impressions: Service Date/Time: Thursday, August 10, 2017 10:58 - CONCLUSION: 1. Bulky 8.9 x 6.2 cm left parahilar mass lesion localized to the superior segment left lower lobe. Direct extension to the left hilar lymph nodes with no obvious mediastinal adenopathy. 2. There is a consolidation in the left base may represent daughter lesions or postobstructive collapse. Bulky lower lobe and artery and bronchial tree traverse through the mass lesion. 3. Old granulomatous calcifications bilaterally. Mingo Rodriguez MD Hip and Pelvis X-Ray 08/10/17 0451 Signed Impressions: Service Date/Time: Thursday, August 10, 2017 05:02 - CONCLUSION: 1. Intertrochanteric fracture left proximal femur. 2. Small sclerotic focus right iliac bone, nonspecific. Camron Villareal MD Femur X-Ray 08/10/17 0000 Signed Impressions: Service Date/Time: Thursday, August 10, 2017 09:07 - CONCLUSION: Intact postsurgical changes. Edward Willingham MD Objective Remarks GENERAL: Well-developed, well-nourished in no distress on nasal cannula SKIN: Warm and dry. CARDIOVASCULAR: Regular rate and rhythm. RESPIRATORY: No accessory muscle use. Clear to auscultation. Breath sounds equal bilaterally. GASTROINTESTINAL: Abdomen soft, non-tender, nondistended. MUSCULOSKELETAL: Extremities without clubbing, cyanosis, or edema. Tender left hip NEUROLOGICAL: Awake and alert. No obvious cranial nerve deficits. Motor grossly within normal limits. Five out of 5 muscle strength in the arms and legs. Normal speech. No significant changes in PE Procedures Left hip reduction and intramedullary nail fixation Lung biopsy A/P Problem List: (1) Fracture, intertrochanteric, left femur ICD Code: S72.142A - Displaced intertrochanteric fracture of left femur, initial encounter for closed fracture Status: Acute (2) Fall ICD Code: W19.XXXA - Unspecified fall, initial encounter Status: Acute (3) Lung mass ICD Code: R91.8 - Other nonspecific abnormal finding of lung field Status: Acute Assessment and Plan Status post fall Left intertrochanteric proximal femur fracture -Status post repair. Stable continue postoperative care with PT, wound care, pain management with Lortab and IV morphine and DVT prophylaxis with Lovenox Acute anemia secondary to acute blood loss from surgery. Hemodynamically stable will monitor Hypertension. Uncontrolled secondary to pain. Continue Detrol with as needed when necessary Vasotec and clonidine. Improved Diabetes. Monitor fingersticks with sliding scale coverage. Stable restart metformin and continue glipizide Hyperlipidemia. Continue statins Lung mass status post post lung biopsy. Abdominal CT results noted. Oncology cleared patient for discharge with outpatient follow-up regarding pathology Discharge Planning Discharge to rehabilitation when authorization obtained Problem Qualifiers (1) Fracture, intertrochanteric, left femur: Qualified Codes: S72.142A - Displaced intertrochanteric fracture of left femur , initial encounter for closed fracture (2) Fall: Qualified Codes: W19.XXXA - Unspecified fall, initial encounter Pedro Luis Pelayo MD Aug 12, 2017 14:22
[2017-08-12] MEDS ORDERED: RESP: ALBUTEROL 2.5 MG/3 ML NEB (PRN) NEB (14:30)
--- NOTE | 2017-08-12 14:50 | PD.ONC.PN ---
Subjective Subjective Remarks Afebrile Pt denies SOB Having some pain in her hip from surgery Objective Data Date Time Temp Pulse Resp B/P (MAP) Pulse Ox O2 Delivery O2 Flow Rate FiO2 08/12/17 08:00 97.3 94 16 138/66 (90) 92 08/12/17 04:14 98.2 100 18 127/60 (82) 96 08/12/17 00:00 98.0 100 20 151/90 (110) 96 08/11/17 21:43 99.3 101 20 129/60 (83) 94 08/11/17 18:57 16 08/11/17 17:15 95 20 123/64 (83) 96 08/11/17 16:30 97.7 109 20 123/67 (85) 97 08/12/17 08/12/17 08/12/17 07:00 15:00 23:00 Intake Total 120 ml Balance 120 ml Result Diagram: 08/12/17 0642 08/12/17 0642 Laboratory Results Laboratory Tests Test 08/12/17 06:42 White Blood Count 9.3 TH/MM3 Red Blood Count 2.90 MIL/MM3 Hemoglobin 8.9 GM/DL Hematocrit 26.2 % Mean Corpuscular Volume 90.4 FL Mean Corpuscular Hemoglobin 30.8 PG Mean Corpuscular Hemoglobin Concent 34.0 % Red Cell Distribution Width 15.8 % Platelet Count 160 TH/MM3 Mean Platelet Volume 8.2 FL Neutrophils (%) (Auto) 73.8 % Lymphocytes (%) (Auto) 14.7 % Monocytes (%) (Auto) 7.9 % Eosinophils (%) (Auto) 3.1 % Basophils (%) (Auto) 0.5 % Neutrophils # (Auto) 6.9 TH/MM3 Lymphocytes # (Auto) 1.4 TH/MM3 Monocytes # (Auto) 0.7 TH/MM3 Eosinophils # (Auto) 0.3 TH/MM3 Basophils # (Auto) 0.0 TH/MM3 CBC Comment DIFF FINAL Differential Comment Blood Urea Nitrogen 17 MG/DL Creatinine 0.77 MG/DL Random Glucose 113 MG/DL Calcium Level 8.2 MG/DL Magnesium Level 1.9 MG/DL Sodium Level 140 MEQ/L Potassium Level 3.7 MEQ/L Chloride Level 104 MEQ/L Carbon Dioxide Level 28.4 MEQ/L Anion Gap 8 MEQ/L Estimat Glomerular Filtration Rate 72 ML/MIN Iron Level 22 MCG/DL Total Iron Binding Capacity 239 MCG/DL Percent Iron Saturation 9.2 % Ferritin 61 NG/ML Vitamin B12 Level 198 PG/ML Imaging Studies Last 24 hours Impressions Chest X-Ray 08/11/171829 Signed Impressions: Service Date/Time: Friday, August 11, 2017 19:17 - CONCLUSION: No evidence of pneumothorax Robb Shukla MD Chest X-Ray 08/11/171829 Signed Impressions: Service Date/Time: Friday, August 11, 2017 17:12 - CONCLUSION: 1. No significant pneumothorax status post left lower lobe lung mass biopsy. Aleksandr Casanova MD Administered Medications Medications (Trade) Dose Ordered Sig/Cristian Route PRN Reason Start Time Stop Time Status Last Admin Dose Admin Acetaminophen/ Hydrocodone Bitart ([place] 5-325 Mg) 1 tab Q4H PRN PO PAIN SCALE 3 TO 5 08/10/17 07:00 08/11/17 00:00 Acetaminophen/ Hydrocodone Bitart ([place] 7.5-325 Mg) 1 tab Q4H PRN PO PAIN SCALE 6 TO 10 08/10/17 07:00 08/12/17 14:43 Senna/Docusate Sodium (Rose-Colace) 1 tab BID PO 08/10/17 09:00 08/12/17 09:28 Sennosides (Senokot) 17.2 mg Q12H PRN PO Moderate constipation 08/10/17 07:00 08/12/17 09:28 Insulin Aspart (NovoLOG SUPPLEMENTAL SCALE) 1 ACHS SLIDING SCALE SQ 08/10/17 08:00 08/10/17 20:32 Levothyroxine Sodium (Synthroid) 100 mcg DAILY@0600 PO 08/10/17 07:33 08/12/17 06:22 Tolterodine Tartrate (Detrol La) 4 mg DAILY PO 08/10/17 09:00 08/12/17 09:28 Pravastatin Sodium (Pravachol) 40 mg DAILY PO 08/10/17 09:00 08/12/17 09:28 Pantoprazole Sodium (Protonix) 40 mg DAILY PO 08/10/17 09:00 08/12/17 09:28 Lactated Ringer's 1,000 ml @ 30 mls/hr Q24H PRN IV SEE LABEL COMMENTS 08/10/17 08:15 08/13/17 08:14 08/10/17 07:50 IV Flush (NS Flush) 2 ml BID IVF 08/10/17 09:00 08/12/17 09:28 Enoxaparin Sodium (Lovenox Inj) 30 mg Q24H SQ 08/11/17 09:00 08/12/17 09:27 Calcium/Vitamin D (Oscal-D 250-125) 250 mg TID PO 08/10/17 13:00 08/12/17 14:42 Diphenhydramine HCl (Benadryl) 25 mg Q6H PRN PO ITCHING 08/10/17 08:30 08/10/17 20:32 Cholecalciferol (Vitamin D3) 5,000 units DAILY PO 08/11/17 09:00 08/12/17 09:28 Glimepiride (Amaryl) 4 mg DAILY PO 08/11/17 17:00 08/12/17 09:28 Objective Remarks GENERAL: Elderly female resting in bed in no acute distress. SKIN: Warm and dry. NECK: Supple, trachea midline. No JVD or lymphadenopathy. LYMPHATIC: No adenopathy. CARDIOVASCULAR: Regular rate and rhythm without murmurs. RESPIRATORY: Clear anteriorly. Breathing unlabored. On 4 L nasal cannula GASTROINTESTINAL: Abdomen soft, non-tender, nondistended. EXTREMITIES: No cyanosis, or edema. Assessment/Plan Problem List: (1) Lung mass ICD Codes: R91.8 - Other nonspecific abnormal finding of lung field Status: Acute (2) Fall ICD Codes: W19.XXXA - Unspecified fall, initial encounter Status: Acute (3) Fracture, intertrochanteric, left femur ICD Codes: S72.142A - Displaced intertrochanteric fracture of left femur, initial encounter for closed fracture Status: Acute Plan 1. Okay for discharge from oncology standpoint 2. Facesheet faxed to new patient referrals 3. Discussed with pt using RN as court bailiff or sheriff that we will be able to give her biopsy results in about a week. She will also need PET-CT scan as outpatient. 4. Anemia studies showed low iron. Can be managed as outpatient. Attending Statement The exam, history, and the medical decision-making described in the above note were completed with the assistance of the mid-level provider. I reviewed and agree with the findings presented. I attest that I had a [id number] encounter with the patient on the same day, and personally performed and documented my assessment and findings in the medical record. OK to d/c outpatient f/u d/c with oral iron 325mg po daily d/w dr. elizalde d/w rn o/n events reviewed Problem Qualifiers (1) Fall: Qualified Codes: W19.XXXA - Unspecified fall, initial encounter (2) Fracture, intertrochanteric, left femur: Qualified Codes: S72.142A - Displaced intertrochanteric fracture of left femur , initial encounter for closed fracture Loyda Farrell Aug 12, 2017 14:49 Fritz Mendoza MD Aug 12, 2017 23:25
[2017-08-12] MEDS: RESP: ALBUTEROL 2.5 MG/3 ML NEB (SCH) NEB ×2 (15:01→21:07)
[2017-08-12] MEDS ORDERED: ALBU0.08 NEB ×2 (16:46)
--- NOTE | 2017-08-12 16:47 | HHI.DS ---
Discharge Summary Admission Date Aug 10, 2017 at 05:48 Discharge Date: Aug 18, 2017 Admitting Diagnosis left hip intertrochanteric fracture (1) Fracture, intertrochanteric, left femur ICD Code: S72.142A - Displaced intertrochanteric fracture of left femur, initial encounter for closed fracture Diagnosis: Principal Status: Acute (2) Fall ICD Code: W19.XXXA - Unspecified fall, initial encounter Diagnosis: Principal Status: Acute (3) Lung mass ICD Code: R91.8 - Other nonspecific abnormal finding of lung field Diagnosis: Principal Status: Acute Procedures Left hip reduction and intramedullary nail fixation Lung biopsy Brief History - From Admission hx from patient, ER physician communication, and review of her records. Patient's granddaughter was at the bedside. 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 Patient reported that she was coming from bathroom to the bedroom and at the entrance, she lost balance. She tried to hold onto the vacuum yard cleaner which was around her heart lost balance with it and fell together with the vacuum yard cleaner onto her left side. She denies any premonitory symptoms prior to the fall such as chest pain/ palpitations/dizziness/focal weakness. She denies any diaphoresis/nausea/vomiting. Reports her last fall was about 6 months ago. Denies being on blood thinners. Denies hitting her head. Patient states that she has been taking some cough medicine lately because of her cough. No fever. However denies any history of COPD. She reports of some occasional wheezing but never needed nebulizers or inhalers. Examination apart from the above, patient denies any recent fevers/nausea/vomiting/diarrhea/urinary burning or pain on urination. Denies any hematemesis/hematochezia/melena/hematuria. Patient has been in [facility] for about 1-1/2 years now from [place]. She is here to help her granddaughter out with her toddler son CBC/BMP: 08/12/17 0642 08/12/17 0642 Significant Findings Laboratory Tests Test 08/10/17 04:30 08/10/17 10:00 08/11/17 06:13 08/12/17 06:42 Random Glucose 192 MG/DL (74-106) 155 MG/DL (74-106) 113 MG/DL (74-106) Albumin 3.3 GM/DL (3.4-5.0) Chloride Level 109 MEQ/L (98-107) Estimat Glomerular Filtration Rate 54 ML/MIN (>89) 57 ML/MIN (>89) 72 ML/MIN (>89) 25-Hydroxy Vitamin D Total 6.9 ng/ML (30-100) Red Blood Count 3.00 MIL/MM3 (4.00-5.30) 2.90 MIL/MM3 (4.00-5.30) Hemoglobin 9.2 GM/DL (11.6-15.3) 8.9 GM/DL (11.6-15.3) Hematocrit 26.8 % (35.0-46.0) 26.2 % (35.0-46.0) Neutrophils (%) (Auto) 79.0 % (16.0-70.0) 73.8 % (16.0-70.0) Neutrophils # (Auto) 8.2 TH/MM3 (1.8-7.7) Calcium Level 7.5 MG/DL (8.5-10.1) 8.2 MG/DL (8.5-10.1) Iron Level 22 MCG/DL (50-170) Total Iron Binding Capacity 239 MCG/DL (250-450) Percent Iron Saturation 9.2 % (20-50) Imaging Last Impressions Chest X-Ray 08/11/17 1830 Signed Impressions: Service Date/Time: Friday, August 11, 2017 19:17 - CONCLUSION: No evidence of pneumothorax Robb Shukla MD Abdomen/Pelvis CT 08/11/17 0000 Signed Impressions: Service Date/Time: Friday, August 11, 2017 10:36 - CONCLUSION: 1. 1.3 x 1.6 cm simple appearing cystic mass in the body of the pancreas without pancreatic ductal dilatation or tail atrophy. Although there are no obvious malignant characteristics, differential considerations include both benign and malignant etiologies. However, this does not have characteristic appearance for metastatic disease. 2. 1.9 x 1.7 cm soft tissue density mass adjacent to the righ posterior paraspinal muscles at T12 level. Although nonspecific, metastatic disease cannot be excluded. This may be further evaluated with PET/CT scan. 3. Subcentimeter hypodense lesion in the dome of the liver is too small to characterize. Aleksandr Casanova MD Chest CT 08/10/17 0708 Signed Impressions: Service Date/Time: Thursday, August 10, 2017 10:58 - CONCLUSION: 1. Bulky 8.9 x 6.2 cm left parahilar mass lesion localized to the superior segment left lower lobe. Direct extension to the left hilar lymph nodes with no obvious mediastinal adenopathy. 2. There is a consolidation in the left base may represent daughter lesions or postobstructive collapse. Bulky lower lobe and artery and bronchial tree traverse through the mass lesion. 3. Old granulomatous calcifications bilaterally. Mingo Rodriguez MD Hip and Pelvis X-Ray 08/10/17 0451 Signed Impressions: Service Date/Time: Thursday, August 10, 2017 05:02 - CONCLUSION: 1. Intertrochanteric fracture left proximal femur. 2. Small sclerotic focus right iliac bone, nonspecific. Camron Villareal MD Femur X-Ray 08/10/17 0000 Signed Impressions: Service Date/Time: Thursday, August 10, 2017 09:07 - CONCLUSION: Intact postsurgical changes. Edward Willingham MD PE at Discharge GENERAL: Well-developed, well-nourished in no distress on nasal cannula SKIN: Warm and dry. CARDIOVASCULAR: Regular rate and rhythm. RESPIRATORY: No accessory muscle use. Clear to auscultation. Breath sounds equal bilaterally. GASTROINTESTINAL: Abdomen soft, non-tender, nondistended. MUSCULOSKELETAL: Extremities without clubbing, cyanosis, or edema. Tender left hip NEUROLOGICAL: Awake and alert. No obvious cranial nerve deficits. Motor grossly within normal limits. Five out of 5 muscle strength in the arms and legs. Normal speech. No significant changes in PE Hospital Course Status post fall Left intertrochanteric proximal femur fracture -Status post repair. Stable continue postoperative care with PT, wound care, pain management with Lortab and IV morphine and DVT prophylaxis with Lovenox Acute anemia secondary to acute blood loss from surgery. Hemodynamically stable will continue B-12 supplementation status post IV iron Hypertension. Improving on Norvasc and Detrol with as needed when necessary Vasotec and clonidine. Dizziness which could be multifactorial (meds and uncontrolled hypertension). She is currently nonfocal and hemodynamically stable. Improved . Neuro checks and will continue to monitor. Diabetes. Monitor fingersticks with sliding scale coverage. Stable continue metformin and glipizide Hyperlipidemia. Continue statins Insomnia. Ambien. Lung mass status post post lung biopsy. Abdominal CT results noted. Oncology cleared patient for discharge with outpatient. Path of LEFT LUNG, CT GUIDED NEEDLE CORE BIOPSY: SPINDLE CELL LESION, CONSISTENT WITH SOLITARY FIBROUS TUMOR OF PLEURA. Discussed with oncology recommended CVT consult. Discussed with Dr Golden recommended surgery after recovery from hip fracture. Pet scan outpatient. Hypoxia resolved status post oxygen Loose stool. Discontinue Rose-Colace. No leukocytosis Pt Condition on Discharge: Stable Discharge Disposition: Rehab Inpatient Discharge Time: > 30 minutes Discharge Instructions DIET: Follow Instructions for: As Tolerated, No Restrictions Activities you can perform: Regular-No Restrictions Other Activity Instructions: 50%WB LLE Follow up Referrals: Oncology - 1 Week Orthopedics - 2 Weeks @ [facility] with Ayan Yepez MD PCP Follow-up - 1 Week New Orders: PET, WHOLE BODY - 1 Week New Medications: Calcium Carbonate-Vitamin D (Calcium 600+D 200) 600-200 Mg-Unit Tab 1 TAB PO BID for Nutritional Supplement for 30 Days, #60 TAB 0 Refills Cholecalciferol (Vitamin D3) 2,000 Unit Cap 2000 UNITS PO DAILY for Nutritional Supplement, #56 CAP 0 Refills Ergocalciferol (Ergocalciferol) 50,000 Unit Cap 07478 UNITS PO Q7D for Nutritional Supplement, #56 CAP Hydrocodone-Acetaminophen (Hydrocodone-Acetaminophen) 7.5-325 mg Tab 1 TAB PO Q4H PRN for PAIN, #60 TAB 0 Refills Rivaroxaban (Xarelto) 10 Mg Tab 10 MG PO DAILY for Blood Clot Prevention, #14 TAB 0 Refills Walker/Adult/Folding (Walker/Adult/Folding) 1 Mis Mis EA .ROUTE DIRECTED, #1 0 Refills Albuterol Neb (Albuterol Neb) 2.5 Mg/3 Ml Neb 2.5 MG NEB QID NEB for Breathing Treatment, #120 NEBULE Albuterol Neb (Albuterol Neb) 2.5 Mg/3 Ml Neb 2.5 MG NEB Q2HR NEB PRN for sob, #60 NEBULE Continued Medications: Glimepiride (Glimepiride) 4 Mg Tab 4 MG PO DAILY for Blood Sugar Management, #30 TAB 0 Refills Take with breakfast or first main meal Levothyroxine (Levothyroxine) 100 Mcg Tab 100 MCG PO DAILY for Thyroid, #30 TAB 0 Refills Metformin (Metformin) 500 Mg Tab 500 MG PO DAILY for Blood Sugar Management, #30 TAB 0 Refills With a meal Simvastatin (Simvastatin) 20 Mg Tab 20 MG PO DAILY for Cholesterol Management, #30 TAB 0 Refills Tolterodine ER (Tolterodine ER) 4 Mg Cap 4 MG PO DAILY for Urinary Symptom Managemen, #30 CAP 0 Refills Pedro Luis Pelayo MD Aug 12, 2017 16:47
[2017-08-12] MEDS: ONDANSETRON HCL 4 MG/2 ML VIAL IVP PRN (22:38)
[2017-08-13] VITALS (9 sets, daily range): BP systolic 122–147; BP diastolic 54–70; PULSE 84–119; RESP 17–20; TEMP 97.9–99.1; O2SAT 91–99
[2017-08-13] MEDS: LEVOTHYROXINE SODIUM 100 MCG TAB PO SCH (06:16)
[2017-08-13] MEDS: ACETAMINOPHEN/HYDROcodone 325 MG/7.5 MG TAB PO PRN ×3 (06:16→19:55)
[2017-08-13] MEDS: RESP: ALBUTEROL 2.5 MG/3 ML NEB (SCH) NEB ×4 (08:00→20:00)
--- NOTE | 2017-08-13 08:44 | RADRPT ---
EXAM DATE/TIME: 08/11/2017 15:52 [facility] COMPARISON: No previous studies available for comparison. INDICATIONS : Left lung mass SEDATION TIME: 15 minutes BIOPSY SITE: Left lung MEDICATION(S): 1.).5 mg midazolam (Versed) IV 2.) 25 mcg fentanyl (Sublimaze) IV DEVICE(S): 1.) 20 gauge Temno core biopsy needle A total of four core specimen(s) were obtained and sent to the laboratory for pathologic evaluation. PROCEDURE: 1. CT guided lungleft biopsy. 2. Conscious sedation with continuous EKG and oximetry monitoring. Prior to the procedure informed consent was obtained. Any appropriate prior imaging studies were rev iewed. Using automated exposure control and adjustment of the mA and/or kV according to patient size, radiation dose was kept as low as reasonably achievable to obtain optimal diagnostic quality images. DICOM format image data is available electronically for review and comparison. The site was prepped in a sterile fashion. Full sterile technique was used, including cap, mask, jewel rile gloves and gown and a large sterile sheet. Hand hygiene and 2% chlorhexidine and/or betadine/al cohol prep was utilized per protocol for cutaneous antisepsis. The skin and subcutaneous tissues wer e infiltrated with local anesthetic solution. With CT guidance the previously identified target was localized. Biopsy was performed using the presc ribed needle as above. Adequate hemostasis was obtained with compression at the puncture site. Follow-up CT scan reveals no pneumothorax. Conscious sedation was performed with the prescribed dosages and duration as above in the presence of an independent trained radiology nurse to assist in the monitoring of the patient. EKG and oximetry remained stable throughout the procedure. The patient tolerated the procedure well and there were no complications. The patient was sent to Radiology Outpatient Unit in stable condition. CONCLUSION: Uncomplicated CT guided biopsy. Aleksandr Casanova MD on August 13, 2017 at 8:41 Board Certified Radiologist. This report was verified electronically.
[2017-08-13] MEDS: SODIUM CHLORIDE 0.9% FLUSH 5 ML FLUSH IVF SCH ×2 (09:00→19:56)
[2017-08-13] MEDS: PRAVASTATIN SOD 40 MG TAB PO SCH (09:23)
[2017-08-13] MEDS: GLIMEPIRIDE 4 MG TAB PO SCH (09:23)
[2017-08-13] MEDS: ENOXAPARIN SODIUM 30 MG/0.3 ML SYRINGE SQ SCH (09:23)
[2017-08-13] MEDS: INSULIN ASPART SUPPLEMENTAL SCALE SQ SCH ×4 (09:23→19:54)
[2017-08-13] MEDS: CHOLECALCIFEROL (VIT D3) 5000 UNIT CAP PO SCH (09:24)
[2017-08-13] MEDS: CALCIUM/VITAMIN D 250 MG/125 U TAB PO SCH ×3 (09:24→17:30)
[2017-08-13] MEDS: TOLTERODINE TARTRATE 4 MG CAP LA PO SCH (09:24)
[2017-08-13] MEDS: DOCUSATE SODIUM 50 MG/SENNA 8.6 MG TAB PO SCH ×2 (09:24→19:54)
[2017-08-13] MEDS: metFORMIN HCL 500 MG TAB PO SCH (09:24)
[2017-08-13] MEDS: PANTOPRAZOLE SOD 40 MG DELAYED RELEASE TAB PO SCH (09:24)
--- NOTE | 2017-08-13 12:40 | HHI.PR ---
Subjective Remarks Follow-up orthopedic injury and lung mass. No new complaints. Discussed with RN and case management, awaiting insurance authorization for rehabilitation placement. Pathology still pending. Objective Vitals Vital Signs Date Time Temp Pulse Resp B/P (MAP) Pulse Ox O2 Delivery O2 Flow Rate FiO2 08/13/17 08:25 99 Nasal Cannula 3.00 08/13/17 08:00 97.9 84 17 133/64 (87) 98 08/13/17 04:00 97.9 99 17 138/63 (88) 93 08/13/17 00:00 98.9 98 20 136/61 (86) 94 08/12/17 21:07 95 Nasal Cannula 4.00 08/12/17 20:00 99 08/12/17 20:00 97.7 87 16 134/61 (85) 97 08/12/17 15:01 99 Nasal Cannula 4.00 I/O 08/12/17 08/12/17 08/12/17 08/13/17 08/13/17 08/13/17 07:00 15:00 23:00 07:00 15:00 23:00 Intake Total 120 ml 520 ml 480 ml 240 ml Output Total 300 ml 150 ml Balance 120 ml 520 ml 180 ml 90 ml Intake Oral 120 ml 520 ml 480 ml 240 ml Emesis 300 ml 150 ml # Voids 3 2 1 3 # Bowel Movements 0 0 Result Diagram: 08/12/1764108/12/17641 Objective Remarks GENERAL: Well-developed, well-nourished in no distress on nasal cannula SKIN: Warm and dry. CARDIOVASCULAR: Regular rate and rhythm. RESPIRATORY: No accessory muscle use. Clear to auscultation. Breath sounds equal bilaterally. GASTROINTESTINAL: Abdomen soft, non-tender, nondistended. MUSCULOSKELETAL: Extremities without clubbing, cyanosis, or edema. Tender left hip NEUROLOGICAL: Awake and alert. No obvious cranial nerve deficits. Motor grossly within normal limits. Five out of 5 muscle strength in the arms and legs. Normal speech. Procedures Left hip reduction and intramedullary nail fixation Lung biopsy A/P Problem List: (1) Fracture, intertrochanteric, left femur ICD Code: S72.142A - Displaced intertrochanteric fracture of left femur, initial encounter for closed fracture Status: Acute (2) Fall ICD Code: W19.XXXA - Unspecified fall, initial encounter Status: Acute (3) Lung mass ICD Code: R91.8 - Other nonspecific abnormal finding of lung field Status: Acute Assessment and Plan Status post fall Left intertrochanteric proximal femur fracture -Status post repair. Stable continue postoperative care with PT, wound care, pain management with Lortab and IV morphine and DVT prophylaxis with Lovenox Acute anemia secondary to acute blood loss from surgery. Hemodynamically stable will monitor Hypertension. Uncontrolled secondary to pain. Continue Detrol with as needed when necessary Vasotec and clonidine. Improved Diabetes. Monitor fingersticks with sliding scale coverage. Stable continue metformin and glipizide Hyperlipidemia. Continue statins Lung mass status post post lung biopsy. Abdominal CT results noted. Oncology cleared patient for discharge with outpatient follow-up regarding pathology. Pet scan outpatient Discharge Planning Discharge to rehabilitation when authorization obtained Problem Qualifiers (1) Fracture, intertrochanteric, left femur: Qualified Codes: S72.142A - Displaced intertrochanteric fracture of left femur , initial encounter for closed fracture (2) Fall: Qualified Codes: W19.XXXA - Unspecified fall, initial encounter Pedro Luis Pelayo MD Aug 13, 2017 12:40
[2017-08-13] MEDS: guaiFENesin E.R. 600 MG TAB PO SCH (19:55)
--- NOTE | 2017-08-13 21:49 | PD.ONC.PN ---
Subjective Subjective Remarks RESTING COMFORTABLY HAD BIOPSY YESTERDAY VERY WEAK AND DECONDITIONED LEFT HIP PAIN BETTER Objective Data Date Time Temp Pulse Resp B/P (MAP) Pulse Ox O2 Delivery O2 Flow Rate FiO2 08/13/17 19:39 98.0 108 18 147/68 (94) 92 08/13/17 16:15 91 Nasal Cannula 4.00 08/13/17 16:00 99.1 103 18 134/70 (91) 97 08/13/17 12:00 98.8 110 17 122/54 (76) 95 08/13/17 08:25 99 Nasal Cannula 3.00 08/13/17 08:00 97.9 84 17 133/64 (87) 98 08/13/17 04:00 97.9 99 17 138/63 (88) 93 08/13/17 00:00 98.9 98 20 136/61 (86) 94 08/13/17 08/13/17 08/13/17 07:00 15:00 23:00 Intake Total 240 ml 720 ml 480 ml Output Total 150 ml Balance 90 ml 720 ml 480 ml Result Diagram: 08/12/17 0642 08/12/1742 Administered Medications Medications (Trade) Dose Ordered Sig/Cristian Route PRN Reason Start Time Stop Time Status Last Admin Dose Admin Ondansetron HCl (Zofran Inj) 4 mg Q6H PRN IVP NAUSEA OR VOMITING 08/10/17 07:00 08/12/17 22:38 Acetaminophen/ Hydrocodone Bitart ([place] 5-325 Mg) 1 tab Q4H PRN PO PAIN SCALE 3 TO 5 08/10/17 07:00 08/11/17 00:00 Acetaminophen/ Hydrocodone Bitart ([place] 7.5-325 Mg) 1 tab Q4H PRN PO PAIN SCALE 6 TO 10 08/10/17 07:00 08/13/17 19:55 Senna/Docusate Sodium (Rose-Colace) 1 tab BID PO 08/10/17 09:00 08/13/17 19:54 Magnesium Hydroxide (Milk Of Magnesia Liq) 30 ml Q12H PRN PO Mild constipation 08/10/17 07:00 08/12/17 19:58 Sennosides (Senokot) 17.2 mg Q12H PRN PO Moderate constipation 08/10/17 07:00 08/12/17 19:58 Insulin Aspart (NovoLOG SUPPLEMENTAL SCALE) 1 ACHS SLIDING SCALE SQ 08/10/17 08:00 08/13/17 09:23 Levothyroxine Sodium (Synthroid) 100 mcg DAILY@0600 PO 08/10/17 07:33 08/13/17 06:16 Tolterodine Tartrate (Detrol La) 4 mg DAILY PO 08/10/17 09:00 08/13/17 09:24 Pravastatin Sodium (Pravachol) 40 mg DAILY PO 08/10/17 09:00 08/13/17 09:23 Pantoprazole Sodium (Protonix) 40 mg DAILY PO 08/10/17 09:00 08/13/17 09:24 IV Flush (NS Flush) 2 ml BID IVF 08/10/17 09:00 08/12/17 09:28 Enoxaparin Sodium (Lovenox Inj) 30 mg Q24H SQ 08/11/17 09:00 08/13/17 09:23 Calcium/Vitamin D (Oscal-D 250-125) 250 mg TID PO 08/10/17 13:00 08/13/17 17:30 Diphenhydramine HCl (Benadryl) 25 mg Q6H PRN PO ITCHING 08/10/17 08:30 08/10/17 20:32 Cholecalciferol (Vitamin D3) 5,000 units DAILY PO 08/11/17 09:00 08/13/17 09:24 Glimepiride (Amaryl) 4 mg DAILY PO 08/11/17 17:00 08/13/17 09:23 Metformin HCl (Glucophage) 500 mg DAILY PO 08/13/17 09:00 08/13/17 09:24 Albuterol Sulfate (Albuterol Neb) 2.5 mg QID NEB NEB 08/12/17 16:00 08/13/17 20:00 Guaifenesin (Mucinex Er) 600 mg BID PO 08/13/17 21:00 08/13/17 19:55 Objective Remarks GENERAL: NAD, WEAK SKIN: Warm and dry. NECK: Supple, trachea midline. No JVD or lymphadenopathy. LYMPHATIC: No adenopathy. CARDIOVASCULAR: Regular rate and rhythm without murmurs. RESPIRATORY: Breath sounds equal bilaterally. No accessory muscle use. GASTROINTESTINAL: Abdomen soft, non-tender, nondistended. EXTREMITIES: No cyanosis, or edema. Assessment/Plan Problem List: (1) Lung mass ICD Codes: R91.8 - Other nonspecific abnormal finding of lung field Status: Acute (2) Fall ICD Codes: W19.XXXA - Unspecified fall, initial encounter Status: Acute (3) Fracture, intertrochanteric, left femur ICD Codes: S72.142A - Displaced intertrochanteric fracture of left femur, initial encounter for closed fracture Status: Acute Plan 1. ANEMIA: IRON DEFICIENT/ ALSO LOW J07--QOHGR IV IRON, B12 INJECTION AND DAILY FOLIC ACID, STOOL HEME-OCCULT PENDING 2. LUNG MASS; S/P BIOPSY--PATH PENDING--FURTHER RECS BASED ON BIOPSY 3. FEMUR FRACTURE S/P IM NAILING 4. DECONDITIONING: PT AND WILL NEED REHAB PLACEMENT D/W RN O/N EVENTS REVIEWED Problem Qualifiers (1) Fall: Qualified Codes: W19.XXXA - Unspecified fall, initial encounter (2) Fracture, intertrochanteric, left femur: Qualified Codes: S72.142A - Displaced intertrochanteric fracture of left femur , initial encounter for closed fracture Fritz Mendoza MD Aug 13, 2017 21:49
[2017-08-13] MEDS: FOLIC ACID 1 MG TAB PO SCH (23:21)
[2017-08-13] MEDS: IRON SUCROSE INJ 200 MG in SODIUM CHLORIDE 0.9% INJ 100 ML IV SCH (23:21)
[2017-08-14] VITALS (9 sets, daily range): BP systolic 129–183; BP diastolic 66–84; PULSE 78–109; RESP 17–18; TEMP 96.4–98.6; O2SAT 89–99
[2017-08-14] MEDS: ACETAMINOPHEN/HYDROcodone 325 MG/7.5 MG TAB PO PRN (00:13)
[2017-08-14] MEDS: LEVOTHYROXINE SODIUM 100 MCG TAB PO SCH (06:00)
--- NOTE | 2017-08-14 06:59 | PD.ORT.PN ---
Subjective Subjective Remarks Pain controlled with no new complaints Objective Vitals Vital Signs Date Time Temp Pulse Resp B/P (MAP) Pulse Ox O2 Delivery O2 Flow Rate FiO2 08/14/17 03:55 96.7 78 18 157/70 (99) 96 08/14/17 01:11 18 08/14/17 00:02 97.6 96 18 171/75 (107) 94 08/13/17 20:00 119 08/13/17 19:39 98.0 108 18 147/68 (94) 92 08/13/17 16:15 91 Nasal Cannula 4.00 08/13/17 16:00 99.1 103 18 134/70 (91) 97 08/13/17 12:00 98.8 110 17 122/54 (76) 95 08/13/17 08:25 99 Nasal Cannula 3.00 08/13/17 08:00 97.9 84 17 133/64 (87) 98 I/O 08/13/17 08/13/17 08/13/17 08/14/17 08/14/17 08/14/17 07:00 15:00 23:00 07:00 15:00 23:00 Intake Total 240 ml 720 ml 480 ml 350 ml Output Total 150 ml Balance 90 ml 720 ml 480 ml 350 ml Intake Oral 240 ml 720 ml 480 ml 240 ml IV Total 110 ml Emesis 150 ml # Voids 3 3 5 2 # Bowel Movements 0 0 0 Result Diagram: 08/12/1742 08/12/17 0642 Imaging Last 24 hours Impressions Hip and Pelvis X-Ray 08/10/17 0455 Signed Impressions: Service Date/Time: Thursday, August 10, 2017 05:02 - CONCLUSION: 1. Intertrochanteric fracture left proximal femur. 2. Small sclerotic focus right iliac bone, nonspecific. Camron Villareal MD Chest X-Ray 08/10/17 5079 Signed Impressions: Service Date/Time: Thursday, August 10, 2017 05:06 - CONCLUSION: 1. 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 Contrasted CT chest recommended. 2. Subcentimeter nodule right lower lobe. 3. Minimal retrocardiac density. Camron Villareal MD Objective Remarks Bilateral upper extremities: Full range of motion neurovascular intact Right lower extremity: Full range of motion neurovascularly intact Left lower extremity: Clean dry dressings intact. Mild swelling. No pain with ankle range of motion. Distally intact sensation with good capillary refill Assessment & Plan Assessment and Plan 1) Left subtrochanteric femur fracture - IM nail POD 4 Daily dressing changes 50% weightbearing left lower extremity Lovenox Incentive spirometry Case management for rehabilitation placement ortho cleared for DC to rehab Follow-up with Dr. Hinkle or PA in 2 weeks Marty Luke Jr. Aug 14, 2017 06:59
[2017-08-14] MEDS: RESP: ALBUTEROL 2.5 MG/3 ML NEB (SCH) NEB ×4 (09:03→20:00)
[2017-08-14] MEDS: INSULIN ASPART SUPPLEMENTAL SCALE SQ SCH ×4 (09:07→21:43)
[2017-08-14] MEDS: PANTOPRAZOLE SOD 40 MG DELAYED RELEASE TAB PO SCH (09:46)
[2017-08-14] MEDS: TOLTERODINE TARTRATE 4 MG CAP LA PO SCH (09:46)
[2017-08-14] MEDS: ENOXAPARIN SODIUM 30 MG/0.3 ML SYRINGE SQ SCH (09:46)
[2017-08-14] MEDS: FOLIC ACID 1 MG TAB PO SCH (09:46)
[2017-08-14] MEDS: CYANOCOBALAMIN 1000 MCG/ML VIAL IM SCH (09:47)
[2017-08-14] MEDS: DOCUSATE SODIUM 50 MG/SENNA 8.6 MG TAB PO SCH ×2 (09:47→21:42)
[2017-08-14] MEDS: PRAVASTATIN SOD 40 MG TAB PO SCH (09:47)
[2017-08-14] MEDS: SENNOSIDES 8.6 MG TAB PO PRN (09:47)
[2017-08-14] MEDS: GLIMEPIRIDE 4 MG TAB PO SCH (09:47)
[2017-08-14] MEDS: metFORMIN HCL 500 MG TAB PO SCH (09:47)
[2017-08-14] MEDS: CALCIUM/VITAMIN D 250 MG/125 U TAB PO SCH ×4 (09:47→18:39)
[2017-08-14] MEDS: CHOLECALCIFEROL (VIT D3) 5000 UNIT CAP PO SCH (09:47)
[2017-08-14] MEDS: IRON SUCROSE INJ 200 MG in SODIUM CHLORIDE 0.9% INJ 100 ML IV SCH (09:47)
[2017-08-14] MEDS: guaiFENesin E.R. 600 MG TAB PO SCH ×2 (09:47→21:42)
[2017-08-14] MEDS: SODIUM CHLORIDE 0.9% FLUSH 5 ML FLUSH IVF SCH ×2 (09:48→21:42)
--- NOTE | 2017-08-14 10:09 | HHI.PR ---
Subjective Remarks Follow-up orthopedic injury and lung mass. Transient dizziness when she got up. No other complaints like chest pain, shortness of breath, nausea, diaphoresis and focal weakness. Elevated BP. Difficulty sleeping at night. Discussed with RN Objective Vitals Vital Signs Date Time Temp Pulse Resp B/P (MAP) Pulse Ox O2 Delivery O2 Flow Rate FiO2 08/14/17 09:07 89 Nasal Cannula 3.00 08/14/17 08:00 96.4 88 18 183/84 (117) 95 08/14/17 03:55 96.7 78 18 157/70 (99) 96 08/14/17 01:11 18 08/14/17 00:02 97.6 96 18 171/75 (107) 94 08/13/17 20:00 119 08/13/17 19:39 98.0 108 18 147/68 (94) 92 08/13/17 16:15 91 Nasal Cannula 4.00 08/13/17 16:00 99.1 103 18 134/70 (91) 97 08/13/17 12:00 98.8 110 17 122/54 (76) 95 I/O 08/13/17 08/13/17 08/13/17 08/14/17 08/14/17 08/14/17 07:00 15:00 23:00 07:00 15:00 23:00 Intake Total 240 ml 720 ml 480 ml 350 ml Output Total 150 ml Balance 90 ml 720 ml 480 ml 350 ml Intake Oral 240 ml 720 ml 480 ml 240 ml IV Total 110 ml Emesis 150 ml # Voids 3 3 5 2 # Bowel Movements 0 0 0 Result Diagram: 08/12/1742 08/12/17641 Objective Remarks GENERAL: Well-developed, well-nourished in no distress on nasal cannula SKIN: Warm and dry. CARDIOVASCULAR: Regular rate and rhythm. RESPIRATORY: No accessory muscle use. Clear to auscultation. Breath sounds equal bilaterally. GASTROINTESTINAL: Abdomen soft, non-tender, nondistended. MUSCULOSKELETAL: Extremities without clubbing, cyanosis, or edema. Tender left hip NEUROLOGICAL: Awake and alert. No obvious cranial nerve deficits. Motor grossly within normal limits. Five out of 5 muscle strength in the arms and legs. Normal speech. Procedures Left hip reduction and intramedullary nail fixation Lung biopsy A/P Problem List: (1) Fracture, intertrochanteric, left femur ICD Code: S72.142A - Displaced intertrochanteric fracture of left femur, initial encounter for closed fracture Status: Acute (2) Fall ICD Code: W19.XXXA - Unspecified fall, initial encounter Status: Acute (3) Lung mass ICD Code: R91.8 - Other nonspecific abnormal finding of lung field Status: Acute Assessment and Plan Status post fall Left intertrochanteric proximal femur fracture -Status post repair. Stable continue postoperative care with PT, wound care, pain management with Lortab and IV morphine and DVT prophylaxis with Lovenox Acute anemia secondary to acute blood loss from surgery. Hemodynamically stable will continue IV iron and B-12 Hypertension. Uncontrolled. Start Norvasc. Continue Detrol with as needed when necessary Vasotec and clonidine. Dizziness which could be multifactorial (meds and uncontrolled hypertension). She is currently nonfocal and hemodynamically stable. Neuro checks and will continue to monitor. Diabetes. Monitor fingersticks with sliding scale coverage. Stable continue metformin and glipizide Hyperlipidemia. Continue statins Lung mass status post post lung biopsy. Abdominal CT results noted. Oncology cleared patient for discharge with outpatient follow-up regarding pathology. Pet scan outpatient. She remains hypoxic requiring more oxygen 3 L. Continue nebulizations and obtain repeat chest x-ray Discharge Planning Discharge to rehabilitation when authorization obtained Problem Qualifiers (1) Fracture, intertrochanteric, left femur: Qualified Codes: S72.142A - Displaced intertrochanteric fracture of left femur , initial encounter for closed fracture (2) Fall: Qualified Codes: W19.XXXA - Unspecified fall, initial encounter Pedro Luis Pelayo MD Aug 14, 2017 10:09
[2017-08-14] MEDS ORDERED: ZOLPIDEM TARTRATE 5 MG TAB PO PRN (10:30)
[2017-08-14] MEDS ORDERED: AMLO5 PO (10:32)
[2017-08-14] MEDS ORDERED: PILL SPLITTER OTHER PRN (10:45)
--- NOTE | 2017-08-14 11:40 | RADRPT ---
EXAM DATE/TIME: 08/14/2017 11:49 [facility] COMPARISON: CT NEEDLE BIOPSY LUNG, LEFT, August 11, 2017, 15:52. CHEST SINGLE AP, August 11, 2017, 19:17. INDICATIONS : Cough. MEDICAL HISTORY : Hypertension. Hypothyroidism. SURGICAL HISTORY : Hysterectomy. ENCOUNTER: Subsequent ACUITY: 4 - 6 days PAIN SCORE: 0/10 LOCATION: Bilateral chest FINDINGS: There is a stable large left lower lung field mass. The heart is stable. The lungs are unchanged co mpared to the previous examination. Granuloma is noted within the right lung base. Degenerative lore nges are noted throughout the thoracic spine. There is no pneumothorax. CONCLUSION: No significant change compared to 08/11/2017. Gideon Simon MD on August 14, 2017 at 11:33 Board Certified Radiologist. This report was verified electronically.
[2017-08-14] MEDS: amLODIPine BESYLATE 5 MG TAB PO SCH (13:37)
[2017-08-15] VITALS (8 sets, daily range): BP systolic 107–166; BP diastolic 63–80; PULSE 93–116; RESP 18–19; TEMP 95.8–99.4; O2SAT 93–98
[2017-08-15] MEDS: ONDANSETRON HCL 4 MG/2 ML VIAL IVP PRN (04:55)
[2017-08-15] MEDS: LEVOTHYROXINE SODIUM 100 MCG TAB PO SCH (04:55)
[2017-08-15] MEDS: ACETAMINOPHEN/HYDROcodone 325 MG/7.5 MG TAB PO PRN (06:36)
[2017-08-15] MEDS: INSULIN ASPART SUPPLEMENTAL SCALE SQ SCH ×4 (08:00→19:58)
[2017-08-15] MEDS: RESP: ALBUTEROL 2.5 MG/3 ML NEB (SCH) NEB ×3 (08:35→20:43)
--- NOTE | 2017-08-15 08:44 | HHI.PR ---
Subjective Remarks Follow-up orthopedic injury, lung mass and constipation. Denies hip pain. Oxygen saturation down to 2 L denies shortness of breath. Patient had a bowel movement yesterday. States she is doing good. Discussed with RN Objective Vitals Vital Signs Date Time Temp Pulse Resp B/P (MAP) Pulse Ox O2 Delivery O2 Flow Rate FiO2 08/15/17 08:38 98 Nasal Cannula 2.00 08/15/17 08:00 96.3 93 19 145/69 (94) 93 08/15/17 07:24 19 08/15/17 04:55 98.9 102 18 163/80 (107) 97 08/15/17 03:03 Nasal Cannula 3.00 Humidified 08/15/17 00:05 99.4 105 19 166/77 (106) 97 08/14/17 20:40 109 08/14/17 20:13 97 Nasal Cannula 3.00 08/14/17 20:10 98.6 107 18 146/66 (92) 99 08/14/17 16:00 96.6 100 18 159/72 (101) 96 08/14/17 12:30 96.7 105 17 129/69 (89) 95 08/14/17 09:07 89 Nasal Cannula 3.00 I/O 08/14/17 08/14/17 08/14/17 08/15/17 08/15/17 08/15/17 07:00 15:00 23:00 07:00 15:00 23:00 Intake Total 350 ml 110 ml 240 ml 360 ml Balance 350 ml 110 ml 240 ml 360 ml Intake Oral 240 ml 240 ml 360 ml IV Total 110 ml 110 ml # Voids 2 3 2 4 # Bowel Movements 0 0 1 Result Diagram: 08/12/17 0642 08/12/17 0642 Imaging Last Impressions Chest X-Ray 08/14/17 0000 Signed Impressions: Service Date/Time: Monday, August 14, 2017 11:49 - CONCLUSION: No significant change compared to 08/11/2017. Gideon Simon MD Lung Biopsy CT 08/11/17 0000 Signed Impressions: Service Date/Time: Friday, August 11, 2017 15:52 - CONCLUSION: Uncomplicated CT guided biopsy. Aleksandr Casanova MD Abdomen/Pelvis CT 08/11/17 0000 Signed Impressions: Service Date/Time: Friday, August 11, 2017 10:36 - CONCLUSION: 1. 1.3 x 1.6 cm simple appearing cystic mass in the body of the pancreas without pancreatic ductal dilatation or tail atrophy. Although there are no obvious malignant characteristics, differential considerations include both benign and malignant etiologies. However, this does not have characteristic appearance for metastatic disease. 2. 1.9 x 1.7 cm soft tissue density mass adjacent to the righ posterior paraspinal muscles at T12 level. Although nonspecific, metastatic disease cannot be excluded. This may be further evaluated with PET/CT scan. 3. Subcentimeter hypodense lesion in the dome of the liver is too small to characterize. Aleksandr Casanova MD Chest CT 08/10/17 0708 Signed Impressions: Service Date/Time: Thursday, August 10, 2017 10:58 - CONCLUSION: 1. Bulky 8.9 x 6.2 cm left parahilar mass lesion localized to the superior segment left lower lobe. Direct extension to the left hilar lymph nodes with no obvious mediastinal adenopathy. 2. There is a consolidation in the left base may represent daughter lesions or postobstructive collapse. Bulky lower lobe and artery and bronchial tree traverse through the mass lesion. 3. Old granulomatous calcifications bilaterally. Mingo Rodriguez MD Hip and Pelvis X-Ray 08/10/17 0451 Signed Impressions: Service Date/Time: Thursday, August 10, 2017 05:02 - CONCLUSION: 1. Intertrochanteric fracture left proximal femur. 2. Small sclerotic focus right iliac bone, nonspecific. Camron Villareal MD Femur X-Ray 08/10/17 0000 Signed Impressions: Service Date/Time: Thursday, August 10, 2017 09:07 - CONCLUSION: Intact postsurgical changes. Edward Willingham MD Objective Remarks GENERAL: Well-developed, well-nourished in no distress on nasal cannula SKIN: Warm and dry. CARDIOVASCULAR: Regular rate and rhythm. RESPIRATORY: No accessory muscle use. Clear to auscultation. Breath sounds equal bilaterally. GASTROINTESTINAL: Abdomen soft, non-tender, nondistended MUSCULOSKELETAL: Extremities without clubbing, cyanosis, or edema. Tender left hip NEUROLOGICAL: Awake and alert. No obvious cranial nerve deficits. Motor grossly within normal limits. Five out of 5 muscle strength in the arms and legs. Normal speech. Procedures Left hip reduction and intramedullary nail fixation Lung biopsy A/P Problem List: (1) Fracture, intertrochanteric, left femur ICD Code: S72.142A - Displaced intertrochanteric fracture of left femur, initial encounter for closed fracture Status: Acute (2) Fall ICD Code: W19.XXXA - Unspecified fall, initial encounter Status: Acute (3) Lung mass ICD Code: R91.8 - Other nonspecific abnormal finding of lung field Status: Acute Assessment and Plan Status post fall Left intertrochanteric proximal femur fracture -Status post repair. Stable continue postoperative care with PT, wound care, pain management with Lortab and IV morphine and DVT prophylaxis with Lovenox Acute anemia secondary to acute blood loss from surgery. Hemodynamically stable will continue IV iron last dose today and B-12 Hypertension. Improving on Norvasc and Detrol with as needed when necessary Vasotec and clonidine. Dizziness which could be multifactorial (meds and uncontrolled hypertension). She is currently nonfocal and hemodynamically stable. Improved . Neuro checks and will continue to monitor. Diabetes. Monitor fingersticks with sliding scale coverage. Stable continue metformin and glipizide Hyperlipidemia. Continue statins Lung mass status post post lung biopsy. Abdominal CT results noted. Oncology cleared patient for discharge with outpatient follow-up regarding pathology. Pet scan outpatient. She remains hypoxic will wean and dc keep sat > 92%. Continue nebulizations Discharge Planning Discharge to rehabilitation when insurance authorization obtained Problem Qualifiers (1) Fracture, intertrochanteric, left femur: Qualified Codes: S72.142A - Displaced intertrochanteric fracture of left femur , initial encounter for closed fracture (2) Fall: Qualified Codes: W19.XXXA - Unspecified fall, initial encounter Pedro Luis Pelayo MD Aug 15, 2017 08:44
[2017-08-15] MEDS: DOCUSATE SODIUM 50 MG/SENNA 8.6 MG TAB PO SCH ×2 (09:00→19:54)
[2017-08-15] MEDS: IRON SUCROSE INJ 200 MG in SODIUM CHLORIDE 0.9% INJ 100 ML IV SCH (09:58)
[2017-08-15] MEDS: PANTOPRAZOLE SOD 40 MG DELAYED RELEASE TAB PO SCH (09:59)
[2017-08-15] MEDS: ENOXAPARIN SODIUM 30 MG/0.3 ML SYRINGE SQ SCH (09:59)
[2017-08-15] MEDS: CHOLECALCIFEROL (VIT D3) 5000 UNIT CAP PO SCH (09:59)
[2017-08-15] MEDS: CALCIUM/VITAMIN D 250 MG/125 U TAB PO SCH ×3 (09:59→18:00)
[2017-08-15] MEDS: guaiFENesin E.R. 600 MG TAB PO SCH ×2 (09:59→19:54)
[2017-08-15] MEDS: metFORMIN HCL 500 MG TAB PO SCH (10:00)
[2017-08-15] MEDS: PRAVASTATIN SOD 40 MG TAB PO SCH (10:00)
[2017-08-15] MEDS: amLODIPine BESYLATE 5 MG TAB PO SCH (10:00)
[2017-08-15] MEDS: TOLTERODINE TARTRATE 4 MG CAP LA PO SCH (10:01)
[2017-08-15] MEDS: CYANOCOBALAMIN 1000 MCG/ML VIAL IM SCH (10:01)
[2017-08-15] MEDS: FOLIC ACID 1 MG TAB PO SCH (10:01)
[2017-08-15] MEDS: GLIMEPIRIDE 4 MG TAB PO SCH (10:01)
[2017-08-15] MEDS: SODIUM CHLORIDE 0.9% FLUSH 5 ML FLUSH IVF SCH ×2 (10:02→20:02)
[2017-08-16] VITALS (9 sets, daily range): BP systolic 98–157; BP diastolic 53–90; PULSE 79–100; RESP 17–18; TEMP 96.1–98.6; O2SAT 92–98
[2017-08-16] MEDS: ACETAMINOPHEN/HYDROcodone 325 MG/7.5 MG TAB PO PRN ×3 (04:43→17:38)
[2017-08-16] MEDS: LEVOTHYROXINE SODIUM 100 MCG TAB PO SCH (04:43)
[2017-08-16] MEDS: ENOXAPARIN SODIUM 30 MG/0.3 ML SYRINGE SQ SCH (07:39)
[2017-08-16] MEDS: metFORMIN HCL 500 MG TAB PO SCH (07:39)
[2017-08-16] MEDS: CALCIUM/VITAMIN D 250 MG/125 U TAB PO SCH ×3 (07:39→17:38)
[2017-08-16] MEDS: amLODIPine BESYLATE 5 MG TAB PO SCH (07:40)
[2017-08-16] MEDS: TOLTERODINE TARTRATE 4 MG CAP LA PO SCH (07:40)
[2017-08-16] MEDS: guaiFENesin E.R. 600 MG TAB PO SCH ×2 (07:40→21:30)
[2017-08-16] MEDS: PANTOPRAZOLE SOD 40 MG DELAYED RELEASE TAB PO SCH (07:40)
[2017-08-16] MEDS: DOCUSATE SODIUM 50 MG/SENNA 8.6 MG TAB PO SCH ×2 (07:40→21:30)
[2017-08-16] MEDS: GLIMEPIRIDE 4 MG TAB PO SCH (07:40)
[2017-08-16] MEDS: CHOLECALCIFEROL (VIT D3) 5000 UNIT CAP PO SCH (07:40)
[2017-08-16] MEDS: PRAVASTATIN SOD 40 MG TAB PO SCH (07:41)
[2017-08-16] MEDS: CYANOCOBALAMIN 1000 MCG/ML VIAL IM SCH (07:41)
[2017-08-16] MEDS: SODIUM CHLORIDE 0.9% FLUSH 5 ML FLUSH IVF SCH ×2 (07:42→21:30)
[2017-08-16] MEDS: FOLIC ACID 1 MG TAB PO SCH (07:42)
[2017-08-16] MEDS: INSULIN ASPART SUPPLEMENTAL SCALE SQ SCH ×4 (07:57→21:30)
[2017-08-16] MEDS: RESP: ALBUTEROL 2.5 MG/3 ML NEB (SCH) NEB ×2 (08:43→11:42)
--- NOTE | 2017-08-16 14:11 | HHI.PR ---
Subjective Remarks Follow-up lung mass and orthopedic injury. She is doing okay reports of difficulty sleeping prescribe Ambien last night. Discussed with RN Objective Vitals Vital Signs Date Time Temp Pulse Resp B/P (MAP) Pulse Ox O2 Delivery O2 Flow Rate FiO2 08/16/17 12:00 98.1 90 18 140/61 (87) 94 08/16/17 08:45 97 Nasal Cannula 2.00 08/16/17 07:51 96.1 83 17 128/60 (82) 95 08/16/17 07:30 82 08/16/17 05:43 18 08/16/17 04:02 96.9 100 18 157/90 (112) 95 08/16/17 00:05 98.6 94 18 151/73 (99) 96 08/15/17 20:54 98.3 102 18 148/71 (96) 96 08/15/17 20:44 93 Nasal Cannula 2.00 08/15/17 16:00 97.5 116 19 107/64 (78) 96 I/O 08/15/17 08/15/17 08/15/17 08/16/17 08/16/17 08/16/17 07:00 15:00 23:00 07:00 15:00 23:00 Intake Total 360 ml 110 ml 240 ml 360 ml Balance 360 ml 110 ml 240 ml 360 ml Intake Oral 360 ml 240 ml 360 ml IV Total 110 ml # Voids 4 3 1 6 # Bowel Movements 1 1 0 0 Result Diagram: 08/12/17 0642 08/12/1742 Objective Remarks GENERAL: Well-developed, well-nourished in no distress on nasal cannula SKIN: Warm and dry. CARDIOVASCULAR: Regular rate and rhythm. RESPIRATORY: No accessory muscle use. Clear to auscultation. Breath sounds equal bilaterally. GASTROINTESTINAL: Abdomen soft, non-tender, nondistended MUSCULOSKELETAL: Extremities without clubbing, cyanosis, or edema. Tender left hip NEUROLOGICAL: Awake and alert. No obvious cranial nerve deficits. Motor grossly within normal limits. Five out of 5 muscle strength in the arms and legs. Normal speech. No significant change in PE from previous Procedures Left hip reduction and intramedullary nail fixation Lung biopsy A/P Problem List: (1) Fracture, intertrochanteric, left femur ICD Code: S72.142A - Displaced intertrochanteric fracture of left femur, initial encounter for closed fracture Status: Acute (2) Fall ICD Code: W19.XXXA - Unspecified fall, initial encounter Status: Acute (3) Lung mass ICD Code: R91.8 - Other nonspecific abnormal finding of lung field Status: Acute Assessment and Plan Status post fall Left intertrochanteric proximal femur fracture -Status post repair. Stable continue postoperative care with PT, wound care, pain management with Lortab and IV morphine and DVT prophylaxis with Lovenox Acute anemia secondary to acute blood loss from surgery. Hemodynamically stable will continue B-12 supplementation status post IV iron Hypertension. Improving on Norvasc and Detrol with as needed when necessary Vasotec and clonidine. Dizziness which could be multifactorial (meds and uncontrolled hypertension). She is currently nonfocal and hemodynamically stable. Improved . Neuro checks and will continue to monitor. Diabetes. Monitor fingersticks with sliding scale coverage. Stable continue metformin and glipizide Hyperlipidemia. Continue statins Insomnia. Ambien. Lung mass status post post lung biopsy. Abdominal CT results noted. Oncology cleared patient for discharge with outpatient follow-up regarding pathology which was negative for malignancy. We will alert oncology. Pet scan outpatient. She remains hypoxic will wean and dc keep sat > 92%. Hypoxia is improving currently tolerating 2 L. Continue nebulizations Discharge Planning Discharge to rehabilitation when insurance authorization obtained Problem Qualifiers (1) Fracture, intertrochanteric, left femur: Qualified Codes: S72.142A - Displaced intertrochanteric fracture of left femur , initial encounter for closed fracture (2) Fall: Qualified Codes: W19.XXXA - Unspecified fall, initial encounter Pedro Luis Pelayo MD Aug 16, 2017 14:11
--- NOTE | 2017-08-16 23:41 | PD.ONC.PN ---
Subjective Subjective Remarks clinically the same very weak awaiting placement path pending Objective Data Date Time Temp Pulse Resp B/P (MAP) Pulse Ox O2 Delivery O2 Flow Rate FiO2 08/16/17 20:06 97.8 84 18 133/67 (89) 98 08/16/17 19:04 17 08/16/17 16:00 96.3 94 17 133/60 (84) 92 08/16/17 12:00 98.1 90 18 140/61 (87) 94 08/16/17 08:45 97 Nasal Cannula 2.00 08/16/17 07:51 96.1 83 17 128/60 (82) 95 08/16/17 07:30 82 08/16/17 04:02 96.9 100 18 157/90 (112) 95 08/16/17 00:05 98.6 94 18 151/73 (99) 96 Result Diagram: 08/12/1742 08/12/1742 Administered Medications Medications (Trade) Dose Ordered Sig/Cristian Route PRN Reason Start Time Stop Time Status Last Admin Dose Admin Ondansetron HCl (Zofran Inj) 4 mg Q6H PRN IVP NAUSEA OR VOMITING 08/10/17 07:00 08/15/17 04:55 Acetaminophen/ Hydrocodone Bitart ([place] 5-325 Mg) 1 tab Q4H PRN PO PAIN SCALE 3 TO 5 08/10/17 07:00 08/11/17 00:00 Acetaminophen/ Hydrocodone Bitart (Almo 7.5-325 Mg) 1 tab Q4H PRN PO PAIN SCALE 6 TO 10 08/10/17 07:00 08/16/17 17:38 Senna/Docusate Sodium (Rose-Colace) 1 tab BID PO 08/10/17 09:00 08/16/17 21:30 Magnesium Hydroxide (Milk Of Magnesia Liq) 30 ml Q12H PRN PO Mild constipation 08/10/17 07:00 08/12/17 19:58 Sennosides (Senokot) 17.2 mg Q12H PRN PO Moderate constipation 08/10/17 07:00 08/14/17 09:47 Lactulose (Lactulose Liq) 30 ml DAILY PRN PO SEVERE CONSITIPATION 08/10/17 07:00 08/15/17 04:14 Enalaprilat (Vasotec Inj) 1.25 mg Q6H PRN IV PUSH SBP> OR = 180, DBP> OR = 100 08/10/17 07:00 08/15/17 04:36 Insulin Aspart (NovoLOG SUPPLEMENTAL SCALE) 1 ACHS SLIDING SCALE SQ 08/10/17 08:00 08/14/17 21:43 Levothyroxine Sodium (Synthroid) 100 mcg DAILY@0600 PO 08/10/17 07:33 08/16/17 04:43 Tolterodine Tartrate (Detrol La) 4 mg DAILY PO 08/10/17 09:00 08/16/17 07:40 Pravastatin Sodium (Pravachol) 40 mg DAILY PO 08/10/17 09:00 08/16/17 07:41 Pantoprazole Sodium (Protonix) 40 mg DAILY PO 08/10/17 09:00 08/16/17 07:40 IV Flush (NS Flush) 2 ml BID IVF 08/10/17 09:00 08/16/17 21:30 Enoxaparin Sodium (Lovenox Inj) 30 mg Q24H SQ 08/11/17 09:00 08/16/17 07:39 Calcium/Vitamin D (Oscal-D 250-125) 250 mg TID PO 08/10/17 13:00 08/16/17 17:38 Diphenhydramine HCl (Benadryl) 25 mg Q6H PRN PO ITCHING 08/10/17 08:30 08/10/17 20:32 Cholecalciferol (Vitamin D3) 5,000 units DAILY PO 08/11/17 09:00 08/16/17 07:40 Glimepiride (Amaryl) 4 mg DAILY PO 08/11/17 17:00 08/16/17 07:40 Metformin HCl (Glucophage) 500 mg DAILY PO 08/13/17 09:00 08/16/17 07:39 Albuterol Sulfate (Albuterol Neb) 2.5 mg Q2HR NEB PRN NEB sob 08/12/17 14:30 08/15/17 16:40 Guaifenesin (Mucinex Er) 600 mg BID PO 08/13/17 21:00 08/16/17 21:30 Cyanocobalamin (Vitamin B12 Inj) 1,000 mcg DAILY IM 08/14/17 09:00 08/16/17 07:41 Folic Acid (Folate) 1 mg DAILY PO 08/13/17 22:00 08/16/17 07:42 Amlodipine Besylate (Norvasc) 2.5 mg DAILY PO 08/14/17 10:30 08/16/17 07:40 Objective Remarks GENERAL: weak SKIN: Warm and dry. LYMPHATIC: No adenopathy. CARDIOVASCULAR: Regular rate and rhythm without murmurs. RESPIRATORY: Breath sounds equal bilaterally. No accessory muscle use. GASTROINTESTINAL: Abdomen soft, non-tender, nondistended. EXTREMITIES: No cyanosis,left hip painful onmovement Assessment/Plan Problem List: (1) Lung mass ICD Codes: R91.8 - Other nonspecific abnormal finding of lung field Status: Acute (2) Fall ICD Codes: W19.XXXA - Unspecified fall, initial encounter Status: Acute (3) Fracture, intertrochanteric, left femur ICD Codes: S72.142A - Displaced intertrochanteric fracture of left femur, initial encounter for closed fracture Status: Acute Plan 1. ANEMIA: IRON DEFICIENT/ ALSO LOW V37--CBOUV IV IRON, B12 INJECTION AND DAILY FOLIC ACID, STOOL HEME-OCCULT not completed---check cbc in am 2. LUNG MASS; S/P BIOPSY--PATH PENDING--FURTHER RECS BASED ON BIOPSY 3. FEMUR FRACTURE S/P IM NAILING 4. DECONDITIONING: PT AND WILL NEED REHAB PLACEMENT D/W RN O/N EVENTS REVIEWED Problem Qualifiers (1) Fall: Qualified Codes: W19.XXXA - Unspecified fall, initial encounter (2) Fracture, intertrochanteric, left femur: Qualified Codes: S72.142A - Displaced intertrochanteric fracture of left femur , initial encounter for closed fracture Fritz Mendoza MD Aug 16, 2017 23:41
[2017-08-17] VITALS (8 sets, daily range): BP systolic 116–161; BP diastolic 57–72; PULSE 85–110; RESP 17–18; TEMP 95.8–98.9; O2SAT 92–97
[2017-08-17] MEDS: ACETAMINOPHEN/HYDROcodone 325 MG/7.5 MG TAB PO PRN ×3 (05:00→20:17)
[2017-08-17] MEDS: LEVOTHYROXINE SODIUM 100 MCG TAB PO SCH (06:26)
[2017-08-17] MEDS: ENOXAPARIN SODIUM 30 MG/0.3 ML SYRINGE SQ SCH (07:50)
[2017-08-17] MEDS: CYANOCOBALAMIN 1000 MCG/ML VIAL IM SCH (07:51)
[2017-08-17] MEDS: CHOLECALCIFEROL (VIT D3) 5000 UNIT CAP PO SCH (07:51)
[2017-08-17] MEDS: SENNOSIDES 8.6 MG TAB PO PRN (07:51)
[2017-08-17] MEDS: CALCIUM/VITAMIN D 250 MG/125 U TAB PO SCH ×3 (07:51→20:17)
[2017-08-17] MEDS: GLIMEPIRIDE 4 MG TAB PO SCH (07:51)
[2017-08-17] MEDS: DOCUSATE SODIUM 50 MG/SENNA 8.6 MG TAB PO SCH ×2 (07:51→20:17)
[2017-08-17] MEDS: metFORMIN HCL 500 MG TAB PO SCH (07:51)
[2017-08-17] MEDS: TOLTERODINE TARTRATE 4 MG CAP LA PO SCH (07:51)
[2017-08-17] MEDS: PANTOPRAZOLE SOD 40 MG DELAYED RELEASE TAB PO SCH (07:51)
[2017-08-17] MEDS: amLODIPine BESYLATE 5 MG TAB PO SCH (07:52)
[2017-08-17] MEDS: guaiFENesin E.R. 600 MG TAB PO SCH ×2 (07:52→20:17)
[2017-08-17] MEDS: PRAVASTATIN SOD 40 MG TAB PO SCH (07:52)
[2017-08-17] MEDS: FOLIC ACID 1 MG TAB PO SCH (07:52)
[2017-08-17] MEDS: INSULIN ASPART SUPPLEMENTAL SCALE SQ SCH ×4 (08:00→20:31)
--- NOTE | 2017-08-17 08:01 | HHI.PR ---
Subjective Remarks Follow-up lung mass. Pathology results discussed Onc and CVT as well as with patient and daughter. Also discussed with nursing staff and case management still awaiting insurance authorization for rehabilitation. Objective Vitals Vital Signs Date Time Temp Pulse Resp B/P (MAP) Pulse Ox O2 Delivery O2 Flow Rate FiO2 08/17/17 06:06 16 08/17/17 01:39 Nasal Cannula 3.00 Humidified 08/17/17 00:10 98.9 93 18 155/72 (99) 96 08/16/17 20:06 97.8 84 18 133/67 (89) 98 08/16/17 20:05 79 08/16/17 16:00 96.3 94 17 133/60 (84) 92 08/16/17 12:00 98.1 90 18 140/61 (87) 94 08/16/17 08:45 97 Nasal Cannula 2.00 I/O 08/16/17 08/16/17 08/16/17 08/17/17 08/17/17 08/17/17 07:00 15:00 23:00 07:00 15:00 23:00 Intake Total 360 ml 600 ml 240 ml 480 ml Balance 360 ml 600 ml 240 ml 480 ml Intake Oral 360 ml 600 ml 240 ml 480 ml # Voids 6 2 2 5 # Bowel Movements 0 1 0 0 Imaging Last Impressions Chest X-Ray 08/14/17 0000 Signed Impressions: Service Date/Time: Monday, August 14, 2017 11:49 - CONCLUSION: No significant change compared to 08/11/2017. Gideon Simon MD Lung Biopsy CT 08/11/17 0000 Signed Impressions: Service Date/Time: Friday, August 11, 2017 15:52 - CONCLUSION: Uncomplicated CT guided biopsy. Aleksandr Casanova MD Abdomen/Pelvis CT 08/11/17 0000 Signed Impressions: Service Date/Time: Friday, August 11, 2017 10:36 - CONCLUSION: 1. 1.3 x 1.6 cm simple appearing cystic mass in the body of the pancreas without pancreatic ductal dilatation or tail atrophy. Although there are no obvious malignant characteristics, differential considerations include both benign and malignant etiologies. However, this does not have characteristic appearance for metastatic disease. 2. 1.9 x 1.7 cm soft tissue density mass adjacent to the righ posterior paraspinal muscles at T12 level. Although nonspecific, metastatic disease cannot be excluded. This may be further evaluated with PET/CT scan. 3. Subcentimeter hypodense lesion in the dome of the liver is too small to characterize. Aleksandr Casanova MD Chest CT 08/10/17 0708 Signed Impressions: Service Date/Time: Thursday, August 10, 2017 10:58 - CONCLUSION: 1. Bulky 8.9 x 6.2 cm left parahilar mass lesion localized to the superior segment left lower lobe. Direct extension to the left hilar lymph nodes with no obvious mediastinal adenopathy. 2. There is a consolidation in the left base may represent daughter lesions or postobstructive collapse. Bulky lower lobe and artery and bronchial tree traverse through the mass lesion. 3. Old granulomatous calcifications bilaterally. Mingo Rodriguez MD Hip and Pelvis X-Ray 08/10/17 0451 Signed Impressions: Service Date/Time: Thursday, August 10, 2017 05:02 - CONCLUSION: 1. Intertrochanteric fracture left proximal femur. 2. Small sclerotic focus right iliac bone, nonspecific. Camron Villareal MD Femur X-Ray 08/10/17 0000 Signed Impressions: Service Date/Time: Thursday, August 10, 2017 09:07 - CONCLUSION: Intact postsurgical changes. Edward Willingham MD Objective Remarks GENERAL: Well-developed, well-nourished in no distress on nasal cannula SKIN: Warm and dry. CARDIOVASCULAR: Regular rate and rhythm. RESPIRATORY: No accessory muscle use. Clear to auscultation. Breath sounds equal bilaterally. GASTROINTESTINAL: Abdomen soft, non-tender, nondistended MUSCULOSKELETAL: Extremities without clubbing, cyanosis, or edema. Tender left hip NEUROLOGICAL: Awake and alert. No obvious cranial nerve deficits. Motor grossly within normal limits. Five out of 5 muscle strength in the arms and legs. Normal speech. No significant change in PE from previous Procedures Left hip reduction and intramedullary nail fixation Lung biopsy A/P Problem List: (1) Fracture, intertrochanteric, left femur ICD Code: S72.142A - Displaced intertrochanteric fracture of left femur, initial encounter for closed fracture Status: Acute (2) Fall ICD Code: W19.XXXA - Unspecified fall, initial encounter Status: Acute (3) Lung mass ICD Code: R91.8 - Other nonspecific abnormal finding of lung field Status: Acute Assessment and Plan Status post fall Left intertrochanteric proximal femur fracture -Status post repair. Stable continue postoperative care with PT, wound care, pain management with Lortab and IV morphine and DVT prophylaxis with Lovenox Acute anemia secondary to acute blood loss from surgery. Hemodynamically stable will continue B-12 supplementation status post IV iron Hypertension. Improving on Norvasc and Detrol with as needed when necessary Vasotec and clonidine. Dizziness which could be multifactorial (meds and uncontrolled hypertension). She is currently nonfocal and hemodynamically stable. Improved . Neuro checks and will continue to monitor. Diabetes. Monitor fingersticks with sliding scale coverage. Stable continue metformin and glipizide Hyperlipidemia. Continue statins Insomnia. Ambien. Lung mass status post post lung biopsy. Abdominal CT results noted. Oncology cleared patient for discharge with outpatient. Path of LEFT LUNG, CT GUIDED NEEDLE CORE BIOPSY: SPINDLE CELL LESION, CONSISTENT WITH SOLITARY FIBROUS TUMOR OF PLEURA. Discussed with oncology recommended CVT consult. Discussed with Dr Golden recommended surgery after recovery from hip fracture. Pet scan outpatient. She remains hypoxic will wean and dc keep sat > 92%. Continue nebulizations Discharge Planning Discharge to rehabilitation when insurance authorization obtained Problem Qualifiers (1) Fracture, intertrochanteric, left femur: Qualified Codes: S72.142A - Displaced intertrochanteric fracture of left femur , initial encounter for closed fracture (2) Fall: Qualified Codes: W19.XXXA - Unspecified fall, initial encounter Pedro Luis Pelayo MD Aug 17, 2017 08:01
[2017-08-17] MEDS: SODIUM CHLORIDE 0.9% FLUSH 5 ML FLUSH IVF SCH ×2 (08:02→20:32)
--- NOTE | 2017-08-17 19:37 | PD.ONC.PN ---
Subjective Subjective Remarks no family members present in bed very weak left hip pain better no bleeding Objective Data Date Time Temp Pulse Resp B/P (MAP) Pulse Ox O2 Delivery O2 Flow Rate FiO2 08/17/17 16:00 96.9 93 18 137/63 (87) 94 08/17/17 11:59 97.8 110 17 136/61 (86) 92 08/17/17 08:00 96.0 85 17 161/72 (101) 92 08/17/17 07:30 85 08/17/17 06:06 16 08/17/17 01:39 Nasal Cannula 3.00 Humidified 08/17/17 00:10 98.9 93 18 155/72 (99) 96 08/16/17 20:06 97.8 84 18 133/67 (89) 98 08/16/17 20:05 79 08/17/17 08/17/17 08/17/17 07:00 15:00 23:00 Intake Total 480 ml 480 ml Balance 480 ml 480 ml Culture Results Microbiology Date/Time Source Procedure Growth Status 08/17/17 09:40 Stool Stool Stool Occult Blood (NATE) - Final HEMOCCULT NEGATIVE Complete Administered Medications Medications (Trade) Dose Ordered Sig/Cristian Route PRN Reason Start Time Stop Time Status Last Admin Dose Admin Ondansetron HCl (Zofran Inj) 4 mg Q6H PRN IVP NAUSEA OR VOMITING 08/10/17 07:00 08/15/17 04:55 Acetaminophen/ Hydrocodone Bitart ([place] 5-325 Mg) 1 tab Q4H PRN PO PAIN SCALE 3 TO 5 08/10/17 07:00 08/11/17 00:00 Acetaminophen/ Hydrocodone Bitart ([place] 7.5-325 Mg) 1 tab Q4H PRN PO PAIN SCALE 6 TO 10 08/10/17 07:00 08/17/17 09:47 Senna/Docusate Sodium (Rose-Colace) 1 tab BID PO 08/10/17 09:00 08/17/17 07:51 Magnesium Hydroxide (Milk Of Magnesia Liq) 30 ml Q12H PRN PO Mild constipation 08/10/17 07:00 08/12/17 19:58 Sennosides (Senokot) 17.2 mg Q12H PRN PO Moderate constipation 08/10/17 07:00 08/17/17 07:51 Lactulose (Lactulose Liq) 30 ml DAILY PRN PO SEVERE CONSITIPATION 08/10/17 07:00 08/15/17 04:14 Enalaprilat (Vasotec Inj) 1.25 mg Q6H PRN IV PUSH SBP> OR = 180, DBP> OR = 100 08/10/17 07:00 08/15/17 04:36 Insulin Aspart (NovoLOG SUPPLEMENTAL SCALE) 1 ACHS SLIDING SCALE SQ 08/10/17 08:00 08/14/17 21:43 Levothyroxine Sodium (Synthroid) 100 mcg DAILY@0600 PO 08/10/17 07:33 08/17/17 06:26 Tolterodine Tartrate (Detrol La) 4 mg DAILY PO 08/10/17 09:00 08/17/17 07:51 Pravastatin Sodium (Pravachol) 40 mg DAILY PO 08/10/17 09:00 08/17/17 07:52 Pantoprazole Sodium (Protonix) 40 mg DAILY PO 08/10/17 09:00 08/17/17 07:51 IV Flush (NS Flush) 2 ml BID IVF 08/10/17 09:00 08/17/17 08:02 Enoxaparin Sodium (Lovenox Inj) 30 mg Q24H SQ 08/11/17 09:00 08/17/17 07:50 Calcium/Vitamin D (Oscal-D 250-125) 250 mg TID PO 08/10/17 13:00 08/17/17 13:00 Diphenhydramine HCl (Benadryl) 25 mg Q6H PRN PO ITCHING 08/10/17 08:30 08/10/17 20:32 Cholecalciferol (Vitamin D3) 5,000 units DAILY PO 08/11/17 09:00 08/17/17 07:51 Glimepiride (Amaryl) 4 mg DAILY PO 08/11/17 17:00 08/17/17 07:51 Metformin HCl (Glucophage) 500 mg DAILY PO 08/13/17 09:00 08/17/17 07:51 Albuterol Sulfate (Albuterol Neb) 2.5 mg Q2HR NEB PRN NEB sob 08/12/17 14:30 08/15/17 16:40 Guaifenesin (Mucinex Er) 600 mg BID PO 08/13/17 21:00 08/17/17 07:52 Cyanocobalamin (Vitamin B12 Inj) 1,000 mcg DAILY IM 08/14/17 09:00 08/17/17 07:51 Folic Acid (Folate) 1 mg DAILY PO 08/13/17 22:00 08/17/17 07:52 Amlodipine Besylate (Norvasc) 2.5 mg DAILY PO 08/14/17 10:30 08/17/17 07:52 Objective Remarks GENERAL: nad SKIN: Warm and dry. LYMPHATIC: No adenopathy. CARDIOVASCULAR: Regular rate and rhythm without murmurs. RESPIRATORY: Breath sounds equal bilaterally. No accessory muscle use. GASTROINTESTINAL: Abdomen soft, non-tender, nondistended. EXTREMITIES: No cyanosis, or edema. Assessment/Plan Problem List: (1) Lung mass ICD Codes: R91.8 - Other nonspecific abnormal finding of lung field Status: Acute (2) Fall ICD Codes: W19.XXXA - Unspecified fall, initial encounter Status: Acute (3) Fracture, intertrochanteric, left femur ICD Codes: S72.142A - Displaced intertrochanteric fracture of left femur, initial encounter for closed fracture Status: Acute Plan 1. ANEMIA: IRON DEFICIENT/ ALSO LOW P07--FYDZS IV IRON, B12 INJECTION AND DAILY FOLIC ACID, STOOL HEME-OCCULT negative. check cbc in am 2. LUNG MASS; S/P BIOPSY--PATH reviewed-- solitary fibrous tumor of the pleura - -usually slow growing tumors low potential to metastasize--primary treatment is surgical resection. consult CT surgery --currently recovering from hip surgery, thus will have to time the chest surgery appropriately. 3. FEMUR FRACTURE S/P IM NAILING 4. DECONDITIONING: PT WILL NEED REHAB PLACEMENT d/w Dr. Pelayo d/w rn o/n events reviewed Outpatient f/w in 1-2 weeks Problem Qualifiers (1) Fall: Qualified Codes: W19.XXXA - Unspecified fall, initial encounter (2) Fracture, intertrochanteric, left femur: Qualified Codes: S72.142A - Displaced intertrochanteric fracture of left femur , initial encounter for closed fracture Fritz Mendoza MD Aug 17, 2017 19:37
[2017-08-18 03:47] VITALS: BP 140/63; PULSE 90; RESP 18; TEMP 96.3; O2SAT 96
[2017-08-18] MEDS: LEVOTHYROXINE SODIUM 100 MCG TAB PO SCH (05:53)
[2017-08-18 07:14] LABS: AUTOMATED NEUTROPHIL # 5.7 TH/MM3 (1.8-7.7); BASOPHIL % 0.4 % (0.0-2.0); EOSINOPHIL # 0.2 TH/MM3 (0-0.4); EOSINOPHIL % 2.7 % (0.0-4.0); HEMATOCRIT 26.5 % (35.0-46.0); LYMPH % 17.1 % (9.0-44.0); LYMPHOCYTE # 1.4 TH/MM3 (1.0-4.8); MEAN CELL VOLUME 91.6 FL (80.0-100.0); MEAN CORPUSCULAR HEMOGLOBIN 31.2 PG (27.0-34.0); MEAN CORPUSCULAR HGB CONC 34.1 % (32.0-36.0); MONO % 8.6 % (0.0-8.0); NEUT % 71.2 % (16.0-70.0); PLATELET COUNT 326 TH/MM3 (150-450); RED BLOOD COUNT 2.89 MIL/MM3 (4.00-5.30); RED CELL DISTRIBUTION WIDTH 15.7 % (11.6-17.2)
[2017-08-18 07:17] LABS: HEMO FLAGS AUTO DIFF
[2017-08-18 07:35] LABS: ALT (GPT) 16 U/L (10-53); ANION GAP 6 MEQ/L (5-15); AST (GOT) 19 U/L (15-37); BICARBONATE 33.9 MEQ/L (21.0-32.0); BLOOD UREA NITROGEN 11 MG/DL (7-18); CHLORIDE 101 MEQ/L (98-107); GLOMERULAR FILTRATION RATE 70 ML/MIN (>89); POTASSIUM 3.6 MEQ/L (3.5-5.1); SODIUM (NA) 141 MEQ/L (136-145)
[2017-08-18 07:37] LABS: ALKALINE PHOSPHATASE 45 U/L (45-117); TOTAL BILIRUBIN ADULT 0.8 MG/DL (0.2-1.0)
[2017-08-18 08:00] VITALS: BP 151/77; PULSE 85; RESP 18; TEMP 96.2; O2SAT 92
[2017-08-18] MEDS: INSULIN ASPART SUPPLEMENTAL SCALE SQ SCH ×2 (08:00→12:00)
[2017-08-18 08:37] LABS: BANDS 1 % (0-6); EOSINOPHILS 3 % (0-4); METAMYELOCYTES 1 % (0-1); NEUTROPHIL # MANUAL DIFF 6.2 TH/MM3 (1.8-7.7); PLASMA CELLS 1 % (0-0); PLATELET ESTIMATE SMEAR NORMAL (NORMAL); PLATELET MORPHOLOGY NORMAL (NORMAL); POLYS (SEG NEUTROPHILS) 76 % (16-70); SCAN/DIFF FINAL DIFF MANUAL; WBC DIFF SAMPLE 100
[2017-08-18] MEDS: ENOXAPARIN SODIUM 30 MG/0.3 ML SYRINGE SQ SCH (08:40)
[2017-08-18] MEDS: TOLTERODINE TARTRATE 4 MG CAP LA PO SCH (08:41)
[2017-08-18] MEDS: CHOLECALCIFEROL (VIT D3) 5000 UNIT CAP PO SCH (08:41)
[2017-08-18] MEDS: CALCIUM/VITAMIN D 250 MG/125 U TAB PO SCH (08:41)
[2017-08-18] MEDS: PRAVASTATIN SOD 40 MG TAB PO SCH (08:41)
[2017-08-18] MEDS: guaiFENesin E.R. 600 MG TAB PO SCH (08:41)
[2017-08-18] MEDS: CYANOCOBALAMIN 1000 MCG/ML VIAL IM SCH (08:41)
[2017-08-18] MEDS: FOLIC ACID 1 MG TAB PO SCH (08:41)
[2017-08-18] MEDS: DOCUSATE SODIUM 50 MG/SENNA 8.6 MG TAB PO SCH (08:41)
[2017-08-18] MEDS: metFORMIN HCL 500 MG TAB PO SCH (08:42)
[2017-08-18] MEDS: amLODIPine BESYLATE 5 MG TAB PO SCH (08:42)
[2017-08-18] MEDS: GLIMEPIRIDE 4 MG TAB PO SCH (08:42)
[2017-08-18] MEDS: PANTOPRAZOLE SOD 40 MG DELAYED RELEASE TAB PO SCH (08:42)
[2017-08-18 12:00] VITALS: BP 138/68; PULSE 93; RESP 17; TEMP 98.1; O2SAT 93
== END 2017-08-18 13:23 | DRG 481 ==
LOC: NEPE 04:08 → NEDA 05:48 → NEPFCDU 06:59 → N06B 07:28 → N06A 14:04
PROVIDERS: ADMIT Internal Medicine; ATTEND Internal Medicine
PROC: 0QS706Z Reposition Left Upper Femur with Intramedullary Internal Fixation Device, Open Approach (ICD-10-PCS; principal; 2017-08-10 08:11)
PROC: 0BBJ3ZX Excision of Left Lower Lung Lobe, Percutaneous Approach, Diagnostic (ICD-10-PCS; 2017-08-11)
DX: S72.142A Displaced intertrochanteric fracture of left femur, initial encounter for closed fracture (principal); D62 Acute posthemorrhagic anemia; C38.4 Malignant neoplasm of pleura; I10 Essential (primary) hypertension; E11.9 Type 2 diabetes mellitus without complications; Z79.84 Long term (current) use of oral hypoglycemic drugs; W18.39XA Other fall on same level, initial encounter; Y92.008 Other place in unspecified non-institutional (private) residence as the place of occurrence of the external cause; E78.5 Hyperlipidemia, unspecified; E03.9 Hypothyroidism, unspecified; R09.02 Hypoxemia; R42 Dizziness and giddiness; G47.00 Insomnia, unspecified; K59.00 Constipation, unspecified; Z23 Encounter for immunization; Z87.891 Personal history of nicotine dependence
CPT/HCPCS: 32405; 71010; 71260; 73502; 73552; 74177; 76000; 77012; 80048; 80053; 81219; 82272; 82306; 82607; 82728; 82747; 82948; 83540; 83550; 83735; 85007; 85025; 85027; 85610; 85730; 88305; 88341; 90471; 90472; 90686; 90732; 93005; 94150; 94640; 94664; 96361; 96374; 96375; G0008; G0009; J0131; J0690; J1580; J1650; J1756; J1815; J2250; J2270; J2310; J2405; J3010; J3370; J3420; J7030; J7120; J7613; Q2038; Q9967